=== PATIENT | male | born 1970 | race Caucasian/White ===

== ENCOUNTER 2018-04-29 12:57 | Emergency (ER) | payer MEDICARE, MEDICAID ==
[~2018-04-29] VITALS: Ht 188 cm; Wt 138.5 kg
[~2018-04-29 12:57] MED LIST: ARIP20TA10 PO; BUPR75TA12 PO; DULO60CA64 PO; FLUT16SP18 NS; HYDR-3686 PO; LINA5TAB4 PO; METF500T6 PO; TRAZ-146 PO
[2018-04-29] MEDS ORDERED: INSU100V9 SQ (13:34)
[2018-04-29] MEDS ORDERED: DULA0.75 (13:35)
[2018-04-29 14:11] LABS: BASOPHILS % (AUTO) 0.4 % (0-1); EOSINOPHILS # (AUTO) 0.4 X10'3 (0-0.9); EOSINOPHILS % (AUTO) 4.8 % (0-6); HEMATOCRIT 47.5 % (42.0-52.0); HEMOGLOBIN 16.5 g/dl (14.0-17.9); LYMPHOCYTES # (AUTO) 3.1 X10'3 (1.1-4.8); LYMPHOCYTES % (AUTO) 38.5 % (21-51); MEAN CORPUSCULAR HEMOGLOBIN 29.6 PG (27.0-31.0); MEAN CORPUSCULAR HGB CONC 34.8 % (33.0-36.5); MEAN CORPUSCULAR VOLUME 85.2 FL (78-98); MONOCYTES # (AUTO) 0.4 X10'3 (0-0.9); MONOCYTES % (AUTO) 5.2 % (2-12); NEUTROPHILS # (AUTO) 4.2 X10'3 (1.8-7.7); NEUTROPHILS % (AUTO) 51.1 % (42-75); PLATELET COUNT 185 X10'3 (140-440); RED BLOOD COUNT 5.57 X10'6 (4.70-6.10); RED CELL DISTRIBUTION WIDTH 12.7 % (11.5-14.5); WHITE BLOOD COUNT 8.1 X10'3 (4.5-11.0)
[2018-04-29 14:26] LABS: ALANINE AMINOTRANSFERASE 135 U/L (12-78); ALBUMIN 3.9 G/DL (3.4-5.0); ALBUMIN/GLOBULIN RATIO 0.9 (1.1-1.5); ALKALINE PHOSPHATASE 80 IU/L (46-116); ANION GAP 12 (8-16); ASPARTATE AMINO TRANSFERASE 89 U/L (10-37); BILIRUBIN,TOTAL 0.6 MG/DL (0.1-1.0); BLOOD UREA NITROGEN 10 MG/DL (7-18); BUN/CREATININE RATIO 9.5 (5.4-32.0); CALCIUM 9.1 MG/DL (8.5-10.1); CHLORIDE 101 MMOL/L (99-107); CREATININE 1.05 MG/DL (0.60-1.10); ETHANOL < 0.010 GM/DL (0.0-0.010); GLUCOSE 348 MG/DL (70-104); POTASSIUM 4.3 MMOL/L (3.5-5.1); SODIUM 136 MMOL/L (135-145); TOTAL CARBON DIOXIDE 23.1 MMOL/L (24-32); TOTAL PROTEIN 8.4 G/DL (6.4-8.2); eGFR 76 ML/MIN
[2018-04-29 14:33] LABS: URINE AMPHETAMINE SCREEN NEGATIVE (Neg); URINE BARBITUATE SCREEN NEGATIVE (Neg); URINE BENZODIAZEPINES SCREEN NEGATIVE (Neg); URINE CANNABINOID SCREEN NEGATIVE (Neg); URINE COCAINE SCREEN NEGATIVE (Neg); URINE METHADONE SCREEN NEGATIVE (Neg); URINE OPIATE SCREEN NEGATIVE (Neg); URINE PHENCYCLIDINE SCREEN NEGATIVE (Neg)
[2018-04-29] MEDS ORDERED: ARIP10TA15 PO (17:36)
[2018-04-29] MEDS ORDERED: DULO-31 PO (17:42)
[2018-04-29] MEDS ORDERED: HYDR-3686 PO (17:42)
[2018-04-29] MEDS ORDERED: TRAZ-146 PO (17:42)
[2018-04-29] MEDS ORDERED: METF500T PO (17:42)
[2018-04-29] MEDS ORDERED: LINA5TAB4 PO (17:42)
[2018-04-29] MEDS ORDERED: BUPR75TA8 PO (17:45)
[2018-04-29 17:49] VITALS: BP 146/96
[2018-04-29] MEDS ORDERED: hydrOXYzine 25 MG tablet PO PRN (19:55)
[2018-04-29] MEDS ORDERED: aripiprazole 5mg tablet PO SCH (21:00)
[2018-04-29] MEDS ORDERED: traZODone 50mg tablet PO SCH (21:00)
[2018-04-29] MEDS ORDERED: insulin glargine (Lantus) pen - multi-dose SQ SCH (21:00)
[2018-04-29 21:47] LABS: HEMOGLOBIN A1C 9.5 % (4.5-6.2)
[2018-04-30] MEDS ORDERED: metFORMIN 500mg tablet PO SCH (07:00)
[2018-04-30] MEDS ORDERED: buPROPion 75mg tablet PO SCH (08:00)
[2018-04-30] MEDS ORDERED: duloxetine 30mg CAPSULE.DR PO SCH (08:00)
[2018-04-30] MEDS ORDERED: TRADJENTA 5 MG PO SCH (08:00)
[2018-05-06] MEDS ORDERED: TRULICITY SQ SCH (09:00)
== END 2018-04-29 20:26 | disposition home or self-care (01) ==
LOC: ER 12:58
DX: F32.9 Major depressive disorder, single episode, unspecified (principal); F41.9 Anxiety disorder, unspecified; R45.851 Suicidal ideations; E11.9 Type 2 diabetes mellitus without complications; Z88.0 Allergy status to penicillin; Z79.4 Long term (current) use of insulin; Z79.84 Long term (current) use of oral hypoglycemic drugs; Z79.899 Other long term (current) drug therapy
CPT/HCPCS: 36415; 80053; 80305; 80320; 82948; 83036; 85025; 99284; J1815

== ENCOUNTER 2018-04-29 19:20 | Inpatient (IN) | payer MEDICARE, MEDICAID ==
[~2018-04-29] VITALS: Ht 182.9 cm; Wt 153.0 kg
[~2018-04-29 19:20] MED LIST changes: +ARIP10TA15 PO; +BUPR75TA8 PO; +DULA0.75; +DULO-31 PO; +INSU100V9 SQ; +METF500T PO
[2018-04-29 21:11] VITALS: BP 139/94
[2018-04-29] MEDS ORDERED: hydrOXYzine 25 MG tablet PO PRN (21:50)
[2018-04-29] MEDS: traZODone 50mg tablet PO SCH (22:37)
[2018-04-29] MEDS: aripiprazole 5mg tablet PO SCH (22:37)
[2018-04-29] MEDS ORDERED: acetaminophen 325mg tablet PO PRN ×2 (23:05)
[2018-04-29] MEDS ORDERED: magnesium hydroxide 30ml (MOM) UD suspension PO PRN (23:05)
[2018-04-29] MEDS ORDERED: mag hydrox/Alum hydrox/simeth 30ml oral suspension PO PRN (23:05)
[2018-04-30] MEDS ORDERED: metFORMIN 500mg tablet PO ONE (00:05)
[2018-04-30] MEDS: duloxetine 30mg CAPSULE.DR PO SCH (07:48)
[2018-04-30] MEDS: metFORMIN 500mg tablet PO SCH ×2 (07:49→17:26)
[2018-04-30] MEDS: buPROPion 75mg tablet PO SCH (07:49)
[2018-04-30 08:00] VITALS: BP 128/86
[2018-04-30] MEDS: linagliptin 5mg tablet PO SCH (09:33)
[2018-04-30 11:39] LABS: CHOL/HDL RATIO 8.2 (0.00-4.99); CHOLESTEROL 131 MG/DL (0-200); HDL CHOLESTEROL 16 MG/DL (35-60); LDL CHOLESTEROL 67 MG/DL (50-100); TRIGLYCERIDES 418 MG/DL (20-135)
[2018-04-30 20:00] VITALS: BP 124/84
[2018-04-30] MEDS: insulin glargine (Lantus) pen - multi-dose SQ SCH (21:00)
[2018-04-30] MEDS: traZODone 50mg tablet PO SCH (21:01)
[2018-04-30] MEDS: aripiprazole 5mg tablet PO SCH (21:05)
[2018-05-01] MEDS: metFORMIN 500mg tablet PO SCH ×2 (07:32→17:35)
[2018-05-01] MEDS: buPROPion 75mg tablet PO SCH (07:32)
[2018-05-01] MEDS: duloxetine 30mg CAPSULE.DR PO SCH (07:32)
[2018-05-01] MEDS: linagliptin 5mg tablet PO SCH (07:32)
[2018-05-01 08:00] VITALS: BP 132/88
[2018-05-01 19:36] VITALS: BP 133/89
[2018-05-01] MEDS: aripiprazole 5mg tablet PO SCH (20:40)
[2018-05-01] MEDS: insulin glargine (Lantus) pen - multi-dose SQ SCH (20:40)
[2018-05-01] MEDS: traZODone 50mg tablet PO SCH (20:41)
[2018-05-02] MEDS: duloxetine 30mg CAPSULE.DR PO SCH (07:43)
[2018-05-02] MEDS: linagliptin 5mg tablet PO SCH (07:43)
[2018-05-02] MEDS: metFORMIN 500mg tablet PO SCH ×2 (07:43→17:00)
[2018-05-02 08:00] VITALS: BP 129/88
[2018-05-02] MEDS: buPROPion 100mg tablet PO SCH (09:27)
[2018-05-02 19:29] VITALS: BP 130/89
[2018-05-02] MEDS: traZODone 50mg tablet PO SCH (21:03)
[2018-05-02] MEDS: aripiprazole 5mg tablet PO SCH (21:03)
[2018-05-02] MEDS: insulin glargine (Lantus) pen - multi-dose SQ SCH (21:07)
[2018-05-03 07:48] VITALS: BP 119/78
[2018-05-03] MEDS: metFORMIN 500mg tablet PO SCH ×2 (08:08→17:14)
[2018-05-03] MEDS: linagliptin 5mg tablet PO SCH (08:08)
[2018-05-03] MEDS: duloxetine 30mg CAPSULE.DR PO SCH (08:08)
[2018-05-03] MEDS: buPROPion 100mg tablet PO SCH (08:08)
[2018-05-03 20:04] VITALS: BP 150/91
[2018-05-03] MEDS: aripiprazole 5mg tablet PO SCH (20:53)
[2018-05-03] MEDS: traZODone 50mg tablet PO SCH (20:53)
[2018-05-03] MEDS: insulin glargine (Lantus) pen - multi-dose SQ SCH (20:58)
[2018-05-04 08:16] VITALS: BP 124/77
[2018-05-04] MEDS: metFORMIN 500mg tablet PO SCH ×2 (08:17→17:12)
[2018-05-04] MEDS: buPROPion 100mg tablet PO SCH (08:18)
[2018-05-04] MEDS: linagliptin 5mg tablet PO SCH (08:18)
[2018-05-04] MEDS: duloxetine 30mg CAPSULE.DR PO SCH (08:18)
[2018-05-04 19:00] VITALS: BP 123/82
[2018-05-04] MEDS: aripiprazole 5mg tablet PO SCH (20:31)
[2018-05-04] MEDS: insulin glargine (Lantus) pen - multi-dose SQ SCH (20:34)
[2018-05-04] MEDS: traZODone 50mg tablet PO SCH (21:35)
[2018-05-05 07:45] VITALS: BP 121/81
[2018-05-05] MEDS: metFORMIN 500mg tablet PO SCH ×2 (07:58→17:21)
[2018-05-05] MEDS: buPROPion SR 150mg tablet PO SCH (07:59)
[2018-05-05] MEDS: duloxetine 30mg CAPSULE.DR PO SCH (07:59)
[2018-05-05] MEDS: linagliptin 5mg tablet PO SCH (07:59)
[2018-05-05 19:00] VITALS: BP 132/86
[2018-05-05] MEDS: insulin glargine (Lantus) pen - multi-dose SQ SCH (20:58)
[2018-05-05] MEDS: aripiprazole 5mg tablet PO SCH (20:59)
[2018-05-05] MEDS: traZODone 50mg tablet PO SCH (20:59)
[2018-05-06] MEDS: metFORMIN 500mg tablet PO SCH ×2 (07:23→17:34)
[2018-05-06] MEDS: linagliptin 5mg tablet PO SCH (07:42)
[2018-05-06] MEDS: buPROPion SR 150mg tablet PO SCH (07:42)
[2018-05-06] MEDS: duloxetine 30mg CAPSULE.DR PO SCH (07:42)
[2018-05-06 08:00] VITALS: BP 126/84
[2018-05-06] MEDS ORDERED: DULAGLUTIDE 1.5 MG/0.5 ML SUBCUT SCH (08:00)
[2018-05-06] MEDS ORDERED: DULAGLUTIDE 0.75 MG/0.5 ML SUBCUT SCH (09:00)
[2018-05-06 19:00] VITALS: BP 126/78
[2018-05-06 19:39] VITALS: BP 121/75
[2018-05-06] MEDS ORDERED: aspirin 81mg tab.chew PO ONE (19:55)
[2018-05-06] MEDS ORDERED: nitroGLYCERIN 0.4mg SUBLingual tab SL PRN (20:40)
[2018-05-06 20:41] VITALS: BP 137/84
[2018-05-06 20:43] VITALS: BP 135/87
[2018-05-06] MEDS: traZODone 50mg tablet PO SCH (21:10)
[2018-05-06] MEDS: aripiprazole 5mg tablet PO SCH (21:11)
[2018-05-06] MEDS: insulin glargine (Lantus) pen - multi-dose SQ SCH (21:14)
[2018-05-06 21:24] VITALS: BP 109/70
[2018-05-07 00:55] VITALS: BP 122/85
== END 2018-05-07 01:00 | disposition short-term general hospital (02) | DRG 885 ==
LOC: ADULT MH 19:20
PROVIDERS: ADMIT Psychiatry & Neurology Psychiatry; ATTEND Psychiatry & Neurology Psychiatry
DX: F33.2 Major depressive disorder, recurrent severe without psychotic features (principal); R45.851 Suicidal ideations; Z68.42 Body mass index [BMI] 45.0-49.9, adult; F60.3 Borderline personality disorder; R07.9 Chest pain, unspecified; E11.9 Type 2 diabetes mellitus without complications; F41.9 Anxiety disorder, unspecified; G47.33 Obstructive sleep apnea (adult) (pediatric); E66.01 Morbid (severe) obesity due to excess calories; Z88.0 Allergy status to penicillin; Z79.899 Other long term (current) drug therapy; Z79.4 Long term (current) use of insulin; Z79.84 Long term (current) use of oral hypoglycemic drugs; Z91.5 Personal history of self-harm; Z80.9 Family history of malignant neoplasm, unspecified
CPT/HCPCS: 36415; 80061; 82948; 84443; 84484; 87070; 93005; 99285; J1815

== ENCOUNTER 2018-05-06 22:35 | Inpatient (IN) | payer MEDICARE, MEDICAID ==
[~2018-05-06] VITALS: Ht 185.4 cm; Wt 155.0 kg
[~2018-05-06 22:35] MED LIST changes: -ARIP20TA10 PO; -BUPR75TA12 PO; -DULO60CA64 PO; -FLUT16SP18 NS; -METF500T6 PO
[2018-05-07] VITALS (11 sets, daily range): BP systolic 118–131; BP diastolic 73–87
[2018-05-07] MEDS ORDERED: magnesium hydroxide 30ml (MOM) UD suspension PO PRN (00:45)
[2018-05-07] MEDS ORDERED: aspirin 325mg tablet PO ONE (00:45)
[2018-05-07] MEDS ORDERED: mag hydrox/Alum hydrox/simeth 30ml oral suspension PO PRN (00:45)
[2018-05-07] MEDS ORDERED: ondansetron/PF 4mg/2ml inj IV PRN (00:45)
[2018-05-07] MEDS ORDERED: bisacodyl 10mg suppository rectal RC PRN (00:45)
[2018-05-07] MEDS ORDERED: acetaminophen 325mg tablet PO PRN ×3 (00:45)
[2018-05-07] MEDS ORDERED: nitroGLYCERIN 0.4mg SUBLingual tab SL PRN ×3 (00:45→05:30)
[2018-05-07 03:23] LABS: CHOL/HDL RATIO 6.3 (0.00-4.99); CHOLESTEROL 126 MG/DL (0-200); HDL CHOLESTEROL 20 MG/DL (35-60); TRIGLYCERIDES 196 MG/DL (20-135); TROPONIN I < 0.04 NG/ML (0.0-0.05)
[2018-05-07 03:25] LABS: LDL CHOLESTEROL 77 MG/DL (50-100)
[2018-05-07] MEDS ORDERED: regadenoson 0.4mg/5ml syringe IV ONE ×2 (05:30→09:35)
[2018-05-07] MEDS ORDERED: CAFFEINE CITRATE 60 MG/3 ML injection vial IV PRN (05:30)
[2018-05-07] MEDS ORDERED: metoprolol tartrate 1mg/ml inj IV PRN (05:30)
[2018-05-07] MEDS ORDERED: dextrose 50%-water 50ml dispensing syringe IV PRN ×2 (06:30)
[2018-05-07] MEDS ORDERED: insulin Lispro (HumaLOG) vial - multi-dose SQ SCH (06:30)
[2018-05-07] MEDS ORDERED: MESSAGE TO PHARMACY PO ONE (06:30)
[2018-05-07] MEDS ORDERED: glucagon, human recombinant 1mg kit SUBCUT PRN (06:30)
[2018-05-07] MEDS ORDERED: dextrose ORAL solution 15 GM/59 ML bottle PO PRN ×2 (06:30)
[2018-05-07 08:13] LABS: BASOPHILS % (AUTO) 0.6 % (0-1); EOSINOPHILS # (AUTO) 0.4 X10'3 (0-0.9); HEMATOCRIT 42.6 % (42.0-52.0); HEMOGLOBIN 14.8 g/dl (14.0-17.9); LYMPHOCYTES # (AUTO) 2.8 X10'3 (1.1-4.8); LYMPHOCYTES % (AUTO) 39.6 % (21-51); MEAN CORPUSCULAR HEMOGLOBIN 29.9 PG (27.0-31.0); MEAN CORPUSCULAR HGB CONC 34.8 % (33.0-36.5); MEAN CORPUSCULAR VOLUME 85.9 FL (78-98); MEAN PLATELET VOLUME 9.6 FL (7.4-10.4); MONOCYTES # (AUTO) 0.4 X10'3 (0-0.9); MONOCYTES % (AUTO) 5.5 % (2-12); NEUTROPHILS # (AUTO) 3.4 X10'3 (1.8-7.7); NEUTROPHILS % (AUTO) 48.3 % (42-75); PLATELET COUNT 151 X10'3 (140-440); RED BLOOD COUNT 4.96 X10'6 (4.70-6.10); RED CELL DISTRIBUTION WIDTH 12.4 % (11.5-14.5)
[2018-05-07 08:29] LABS: ALANINE AMINOTRANSFERASE 144 U/L (12-78); ALBUMIN 3.6 G/DL (3.4-5.0); ALKALINE PHOSPHATASE 60 IU/L (46-116); ANION GAP 9 (8-16); ASPARTATE AMINO TRANSFERASE 102 U/L (10-37); BILIRUBIN,TOTAL 0.6 MG/DL (0.1-1.0); BLOOD UREA NITROGEN 14 MG/DL (7-18); BUN/CREATININE RATIO 19.2 (5.4-32.0); CALCIUM 8.6 MG/DL (8.5-10.1); CHLORIDE 104 MMOL/L (99-107); CREATININE 0.73 MG/DL (0.60-1.10); GLUCOSE 174 MG/DL (70-104); POTASSIUM 3.9 MMOL/L (3.5-5.1); SODIUM 138 MMOL/L (135-145); TOTAL CARBON DIOXIDE 24.6 MMOL/L (24-32); TOTAL PROTEIN 7.3 G/DL (6.4-8.2); eGFR > 90 ML/MIN
[2018-05-07 08:32] LABS: TROPONIN I < 0.04 NG/ML (0.0-0.05)
[2018-05-07 08:38] LABS: HEMOGLOBIN A1C 9.7 % (4.5-6.2)
[2018-05-07] MEDS ORDERED: potassium Cl 40MEQ/NS 500ml 500 ML IV PRN ×2 (09:05)
[2018-05-07] MEDS ORDERED: potassium Cl 20 mEq SR tablet PO PRN ×2 (09:05)
[2018-05-07] MEDS ORDERED: magnesium Cl slow-release 64mg tablet PO PRN (09:05)
[2018-05-07] MEDS ORDERED: magnesium/D5W IVPB 100 ML IV PRN (09:05)
[2018-05-07] MEDS ORDERED: magnesium 4gm in 100ml NS 100 ML IV PRN (09:05)
[2018-05-07] MEDS ORDERED: CAFFEINE CITRATE 60 MG/3 ML injection vial IV ONE (09:35)
[2018-05-07] MEDS ORDERED: insulin glargine (Lantus) pen - multi-dose SQ SCH (21:00)
== END 2018-05-07 16:04 | DRG 313 ==
LOC: PCU 3S 22:35
PROVIDERS: ADMIT Emergency Medicine; ATTEND Family Medicine
PROC: 4A02XM4 Measurement of Cardiac Total Activity, External Approach (ICD-10-PCS; principal; 2018-05-07)
PROC: 3E073KZ Introduction of Other Diagnostic Substance into Coronary Artery, Percutaneous Approach (ICD-10-PCS; 2018-05-07)
PROC: 5A09357 Assistance with Respiratory Ventilation, Less than 24 Consecutive Hours, Continuous Positive Airway Pressure (ICD-10-PCS; 2018-05-07)
DX: R07.89 Other chest pain (principal); R45.851 Suicidal ideations; Z68.42 Body mass index [BMI] 45.0-49.9, adult; E11.9 Type 2 diabetes mellitus without complications; E66.9 Obesity, unspecified; G47.30 Sleep apnea, unspecified; Z96.652 Presence of left artificial knee joint; Z88.0 Allergy status to penicillin; Z79.84 Long term (current) use of oral hypoglycemic drugs
CPT/HCPCS: 36415; 78452; 80053; 80061; 82948; 83036; 84484; 85025; 93005; 93017; A9500; J1815

== ENCOUNTER 2018-05-20 18:40 | Inpatient (IN) | payer MEDICARE, MEDICAID ==
[~2018-05-20] VITALS: Ht 188 cm; Wt 159.0 kg
[2018-05-20] MEDS ORDERED: normal saline 1000ML IV soln IVB ONE (19:10)
[2018-05-20] MEDS ORDERED: cefepime 1GM/NS ADD-VANTAGE 100 ML IV ONE (19:10)
[2018-05-20] MEDS ORDERED: vancomycin/NS 1 GM ADD-VANTAGE 250 ML IV ONE (19:10)
[2018-05-20] MEDS ORDERED: iohexol 300mg/ml 100ml inj. ONE (19:14)
[2018-05-20] MEDS ORDERED: acetaminophen 325mg tablet PO ONE (19:25)
[2018-05-20] MEDS ORDERED: LORazepam 2 mg/ml vial IV ONE (19:25)
[2018-05-20 19:33] LABS: BASOPHILS # (AUTO) 0.1 X10'3 (0-0.2); BASOPHILS % (AUTO) 0.6 % (0-1); EOSINOPHILS # (AUTO) 0.3 X10'3 (0-0.9); EOSINOPHILS % (AUTO) 2.9 % (0-6); HEMATOCRIT 40.5 % (42.0-52.0); HEMOGLOBIN 14.2 g/dl (14.0-17.9); LYMPHOCYTES # (AUTO) 2.2 X10'3 (1.1-4.8); LYMPHOCYTES % (AUTO) 18.3 % (21-51); MEAN CORPUSCULAR VOLUME 85.8 FL (78-98); MEAN PLATELET VOLUME 9.4 FL (7.4-10.4); MONOCYTES # (AUTO) 0.8 X10'3 (0-0.9); NEUTROPHILS # (AUTO) 8.5 X10'3 (1.8-7.7); NEUTROPHILS % (AUTO) 71.2 % (42-75); PLATELET COUNT 172 X10'3 (140-440); RED BLOOD COUNT 4.72 X10'6 (4.70-6.10); RED CELL DISTRIBUTION WIDTH 12.4 % (11.5-14.5)
[2018-05-20 19:38] LABS: CLARITY,URINE CLEAR (Clear); COLOR,URINE YELLOW (Yellow); GLUCOSE, URINE >=1000 mg/dl (Neg); KETONES,URINE 40 mg/dl (Neg); LEUKOCYTE ESTERASE ,URINE NEGATIVE (Neg); NITRITES, URINE NEGATIVE (Neg); OCCULT BLOOD,URINE TRACE-INTACT (Neg); PROTEIN,URINE NEGATIVE (Neg); UROBILINOGEN,URINE 0.2 E.U/dL (0.2-1.0)
[2018-05-20 19:39] LABS: UA COLLECTION TYPE VOIDED
[2018-05-20 19:45] LABS: PARTIAL THROMBOPLASTIN TIME 29 SECONDS (22-32); PROTHROMBIN TIME 10.7 SECONDS (9.0-12.0)
[2018-05-20 19:47] LABS: ALANINE AMINOTRANSFERASE 40 U/L (12-78); ALBUMIN 3.3 G/DL (3.4-5.0); ALBUMIN/GLOBULIN RATIO 0.8 (1.1-1.5); ALKALINE PHOSPHATASE 75 IU/L (46-116); ANION GAP 12 (8-16); ASPARTATE AMINO TRANSFERASE 15 U/L (10-37); BILIRUBIN,TOTAL 0.5 MG/DL (0.1-1.0); BLOOD UREA NITROGEN 8 MG/DL (7-18); BUN/CREATININE RATIO 9.5 (5.4-32.0); CALCIUM 9.1 MG/DL (8.5-10.1); CHLORIDE 99 MMOL/L (99-107); CREATININE 0.84 MG/DL (0.60-1.10); GLUCOSE 343 MG/DL (70-104); POTASSIUM 4.2 MMOL/L (3.5-5.1); SODIUM 132 MMOL/L (135-145); TOTAL CARBON DIOXIDE 20.8 MMOL/L (24-32); TOTAL PROTEIN 7.7 G/DL (6.4-8.2); eGFR > 90 ML/MIN
[2018-05-20 19:47] LABS: BACTERIA,URINE NONE SEEN /HPF (Neg); MUCUS STRANDS NONE SEEN /LPF (Neg); RBC,URINE 0-2 /HPF (0-2); SQUAMOUS EPITHELIAL CELL,UR FEW /LPF (FEW); WBC,URINE 0-4 /HPF (0-4)
[2018-05-20] MEDS: MESSAGE TO NURSING PO SCH (20:30)
[2018-05-20] MEDS ORDERED: acetaminophen 325mg tablet PO PRN (22:30)
[2018-05-20] MEDS ORDERED: magnesium hydroxide 30ml (MOM) UD suspension PO PRN (22:30)
[2018-05-20] MEDS ORDERED: bisacodyl 10mg suppository rectal RC PRN (22:30)
[2018-05-20] MEDS ORDERED: morphine 4 MG/ML inj SYRINge IV PRN ×2 (22:30)
[2018-05-20] MEDS ORDERED: ondansetron/PF 4mg/2ml inj IV PRN (22:30)
[2018-05-20] MEDS ORDERED: MESSAGE TO PHARMACY PO ONE (22:40)
[2018-05-20] MEDS ORDERED: glucagon, human recombinant 1mg kit SUBCUT PRN (22:40)
[2018-05-20] MEDS ORDERED: dextrose 50%-water 50ml dispensing syringe IV PRN ×2 (22:40)
[2018-05-20] MEDS ORDERED: dextrose ORAL solution 15 GM/59 ML bottle PO PRN ×2 (22:40)
[2018-05-20] MEDS ORDERED: hydrOXYzine 25 MG tablet PO PRN (23:00)
[2018-05-20] MEDS ORDERED: vancomycin/NS 1 GM ADD-VANTAGE 250 ML X 1 DOSE IV ONE (23:00)
[2018-05-20 23:35] VITALS: BP 136/85
[2018-05-21] VITALS (18 sets, daily range): BP systolic 109–144; BP diastolic 70–89
[2018-05-21] MEDS: sodium chloride 0.45% 1,000 ML IV SCH ×2 (00:37→12:03)
[2018-05-21] MEDS ORDERED: insulin Lispro (HumaLOG) vial - multi-dose SQ ONE ×2 (01:10→01:24)
[2018-05-21] MEDS: cefepime 1GM/NS ADD-VANTAGE 100 ML IV SCH ×3 (03:59→19:35)
[2018-05-21 05:19] LABS: BASOPHILS % (AUTO) 0.2 % (0-1); EOSINOPHILS # (AUTO) 0.3 X10'3 (0-0.9); HEMATOCRIT 36.5 % (42.0-52.0); HEMOGLOBIN 12.8 g/dl (14.0-17.9); LYMPHOCYTES # (AUTO) 2.5 X10'3 (1.1-4.8); LYMPHOCYTES % (AUTO) 21.1 % (21-51); MEAN CORPUSCULAR HGB CONC 35.1 % (33.0-36.5); MEAN CORPUSCULAR VOLUME 85.5 FL (78-98); MEAN PLATELET VOLUME 9.9 FL (7.4-10.4); MONOCYTES # (AUTO) 0.9 X10'3 (0-0.9); NEUTROPHILS # (AUTO) 7.9 X10'3 (1.8-7.7); NEUTROPHILS % (AUTO) 67.7 % (42-75); PLATELET COUNT 157 X10'3 (140-440); RED BLOOD COUNT 4.27 X10'6 (4.70-6.10); RED CELL DISTRIBUTION WIDTH 12.8 % (11.5-14.5); WHITE BLOOD COUNT 11.7 X10'3 (4.5-11.0)
[2018-05-21 05:34] LABS: ALANINE AMINOTRANSFERASE 34 U/L (12-78); ALBUMIN 2.8 G/DL (3.4-5.0); ALBUMIN/GLOBULIN RATIO 0.7 (1.1-1.5); ALKALINE PHOSPHATASE 59 IU/L (46-116); ANION GAP 9 (8-16); ASPARTATE AMINO TRANSFERASE 19 U/L (10-37); BILIRUBIN,TOTAL 0.6 MG/DL (0.1-1.0); BLOOD UREA NITROGEN 8 MG/DL (7-18); BUN/CREATININE RATIO 10.8 (5.4-32.0); CALCIUM 8.3 MG/DL (8.5-10.1); CHLORIDE 101 MMOL/L (99-107); CREATININE 0.74 MG/DL (0.60-1.10); GLUCOSE 253 MG/DL (70-104); MAGNESIUM 1.5 MG/DL (1.5-2.4); SODIUM 133 MMOL/L (135-145); TOTAL CARBON DIOXIDE 22.8 MMOL/L (24-32); TOTAL PROTEIN 6.7 G/DL (6.4-8.2); eGFR > 90 ML/MIN
[2018-05-21] MEDS: MESSAGE TO NURSING PO SCH (06:59)
[2018-05-21] MEDS: insulin Lispro (HumaLOG) vial - multi-dose SQ SCH ×3 (07:19→19:25)
[2018-05-21] MEDS: buPROPion 75mg tablet PO SCH (07:20)
[2018-05-21] MEDS: duloxetine 30mg CAPSULE.DR PO SCH (07:20)
[2018-05-21] MEDS ORDERED: sevoflurane 250ml liquid IH ONE (07:51)
[2018-05-21] MEDS ORDERED: midazolam 2 mg/2 ml injection ONE (07:55)
[2018-05-21] MEDS ORDERED: fentaNYL/PF 50MCG/1 ML 2ML syringe ONE (07:55)
[2018-05-21] MEDS ORDERED: ringers solution, lacted 1,000 ML IV SCH (08:24)
[2018-05-21] MEDS ORDERED: ondansetron/PF 4mg/2ml inj IV PRN (08:25)
[2018-05-21] MEDS ORDERED: morphine 4 MG/ML inj SYRINge IV PRN ×2 (08:25)
[2018-05-21] MEDS ORDERED: proCHLORperazine 10 MG/2 ml inj IV PRN (08:25)
[2018-05-21] MEDS ORDERED: meperidine/PF 25mg/ml syringe IV PRN ×3 (08:25)
[2018-05-21] MEDS ORDERED: propofol inj 20 ML IV ONE ×2 (08:39)
[2018-05-21] MEDS ORDERED: magnesium 4gm in 100ml NS 100 ML IV PRN (10:55)
[2018-05-21] MEDS ORDERED: potassium Cl 40MEQ/NS 500ml 500 ML IV PRN ×2 (10:55)
[2018-05-21] MEDS ORDERED: potassium Cl 20 mEq SR tablet PO PRN ×2 (10:55)
[2018-05-21] MEDS ORDERED: magnesium 1gm/100ml D5W IVPB 100 ML IV PRN (10:55)
[2018-05-21] MEDS ORDERED: magnesium Cl slow-release 64mg tablet PO PRN (10:55)
[2018-05-21] MEDS: traZODone 50mg tablet PO SCH (21:15)
[2018-05-21] MEDS: aripiprazole 5mg tablet PO SCH (21:16)
[2018-05-21] MEDS: insulin glargine (Lantus) pen - multi-dose SQ SCH (21:27)
[2018-05-22] VITALS: BP 118/82
[2018-05-22] MEDS: sodium chloride 0.45% 1,000 ML IV SCH ×3 (03:04→23:03)
[2018-05-22] MEDS: cefepime 1GM/NS ADD-VANTAGE 100 ML IV SCH ×3 (04:17→19:41)
[2018-05-22 05:10] VITALS: BP 110/65
[2018-05-22 06:25] VITALS: BP 122/83
[2018-05-22] MEDS: MESSAGE TO NURSING PO SCH (06:42)
[2018-05-22] MEDS ORDERED: VANCOMYCIN LEVEL IV ONE (07:30)
[2018-05-22] MEDS: duloxetine 30mg CAPSULE.DR PO SCH (07:45)
[2018-05-22] MEDS: buPROPion 75mg tablet PO SCH (07:45)
[2018-05-22] MEDS: insulin Lispro (HumaLOG) vial - multi-dose SQ SCH ×4 (07:56→21:17)
[2018-05-22 08:24] LABS: BASOPHILS % (AUTO) 0.2 % (0-1); EOSINOPHILS # (AUTO) 0.5 X10'3 (0-0.9); EOSINOPHILS % (AUTO) 5.7 % (0-6); HEMATOCRIT 38.5 % (42.0-52.0); HEMOGLOBIN 13.6 g/dl (14.0-17.9); LYMPHOCYTES % (AUTO) 22.3 % (21-51); MEAN CORPUSCULAR HGB CONC 35.4 % (33.0-36.5); MEAN CORPUSCULAR VOLUME 84.9 FL (78-98); MONOCYTES # (AUTO) 0.7 X10'3 (0-0.9); MONOCYTES % (AUTO) 7.5 % (2-12); NEUTROPHILS # (AUTO) 5.7 X10'3 (1.8-7.7); NEUTROPHILS % (AUTO) 64.3 % (42-75); PLATELET COUNT 178 X10'3 (140-440); RED BLOOD COUNT 4.54 X10'6 (4.70-6.10); RED CELL DISTRIBUTION WIDTH 12.8 % (11.5-14.5); WHITE BLOOD COUNT 8.8 X10'3 (4.5-11.0)
[2018-05-22 08:47] LABS: ALANINE AMINOTRANSFERASE 29 U/L (12-78); ALBUMIN 2.9 G/DL (3.4-5.0); ALBUMIN/GLOBULIN RATIO 0.7 (1.1-1.5); ALKALINE PHOSPHATASE 59 IU/L (46-116); ANION GAP 8 (8-16); ASPARTATE AMINO TRANSFERASE 22 U/L (10-37); BLOOD UREA NITROGEN 9 MG/DL (7-18); BUN/CREATININE RATIO 12.5 (5.4-32.0); CALCIUM 8.1 MG/DL (8.5-10.1); CHLORIDE 102 MMOL/L (99-107); CREATININE 0.72 MG/DL (0.60-1.10); GLUCOSE 216 MG/DL (70-104); POTASSIUM 3.8 MMOL/L (3.5-5.1); SODIUM 133 MMOL/L (135-145); TOTAL CARBON DIOXIDE 22.9 MMOL/L (24-32); TOTAL PROTEIN 7.1 G/DL (6.4-8.2); eGFR > 90 ML/MIN
[2018-05-22 08:48] LABS: MAGNESIUM 1.7 MG/DL (1.5-2.4); VANCOMYCIN,TROUGH 8.1 UG/ML (6.0-14.0)
[2018-05-22] MEDS ORDERED: DOXY100T2 PO (09:26)
[2018-05-22 10:48] VITALS: BP 112/72
[2018-05-22] MEDS ORDERED: LORazepam 0.5 MG tablet PO PRN (11:10)
[2018-05-22 19:00] VITALS: BP_SYST 131; BP_SYST 134; BP_DIAS 82; BP_DIAS 87
[2018-05-22] MEDS: lactobacillus rhamnosus 10,000 MMU CELLS/CAPSULE PO SCH (19:41)
[2018-05-22] MEDS ORDERED: lactobacillus rhamnosus 10,000 MMU CELLS/CAPSULE PO SCH (20:00)
[2018-05-22] MEDS: aripiprazole 5mg tablet PO SCH (21:07)
[2018-05-22] MEDS: traZODone 50mg tablet PO SCH (21:07)
[2018-05-22] MEDS: insulin glargine (Lantus) pen - multi-dose SQ SCH (21:19)
[2018-05-22 23:00] VITALS: BP 121/81
[2018-05-23] MEDS: cefepime 1GM/NS ADD-VANTAGE 100 ML IV SCH ×3 (04:11→20:17)
[2018-05-23 05:18] LABS: BASOPHILS % (AUTO) 0.4 % (0-1); EOSINOPHILS # (AUTO) 0.5 X10'3 (0-0.9); EOSINOPHILS % (AUTO) 7.4 % (0-6); HEMATOCRIT 37.6 % (42.0-52.0); HEMOGLOBIN 13.1 g/dl (14.0-17.9); LYMPHOCYTES # (AUTO) 2.1 X10'3 (1.1-4.8); LYMPHOCYTES % (AUTO) 29.6 % (21-51); MEAN CORPUSCULAR HEMOGLOBIN 29.9 PG (27.0-31.0); MEAN CORPUSCULAR HGB CONC 34.9 % (33.0-36.5); MEAN CORPUSCULAR VOLUME 85.6 FL (78-98); MEAN PLATELET VOLUME 9.1 FL (7.4-10.4); MONOCYTES # (AUTO) 0.6 X10'3 (0-0.9); MONOCYTES % (AUTO) 7.9 % (2-12); NEUTROPHILS # (AUTO) 3.9 X10'3 (1.8-7.7); NEUTROPHILS % (AUTO) 54.7 % (42-75); PLATELET COUNT 192 X10'3 (140-440); RED BLOOD COUNT 4.39 X10'6 (4.70-6.10); RED CELL DISTRIBUTION WIDTH 12.4 % (11.5-14.5); WHITE BLOOD COUNT 7.2 X10'3 (4.5-11.0)
[2018-05-23 05:42] LABS: ALANINE AMINOTRANSFERASE 31 U/L (12-78); ALBUMIN 2.7 G/DL (3.4-5.0); ALBUMIN/GLOBULIN RATIO 0.7 (1.1-1.5); ALKALINE PHOSPHATASE 55 IU/L (46-116); ANION GAP 10 (8-16); ASPARTATE AMINO TRANSFERASE 28 U/L (10-37); BILIRUBIN,TOTAL 0.6 MG/DL (0.1-1.0); BLOOD UREA NITROGEN 13 MG/DL (7-18); BUN/CREATININE RATIO 18.8 (5.4-32.0); CALCIUM 8.3 MG/DL (8.5-10.1); CHLORIDE 104 MMOL/L (99-107); CREATININE 0.69 MG/DL (0.60-1.10); GLUCOSE 210 MG/DL (70-104); MAGNESIUM 1.6 MG/DL (1.5-2.4); SODIUM 136 MMOL/L (135-145); TOTAL CARBON DIOXIDE 22.4 MMOL/L (24-32); TOTAL PROTEIN 6.8 G/DL (6.4-8.2); eGFR > 90 ML/MIN
[2018-05-23 07:00] VITALS: BP 124/70
[2018-05-23] MEDS: duloxetine 30mg CAPSULE.DR PO SCH (07:28)
[2018-05-23] MEDS: buPROPion 75mg tablet PO SCH (07:28)
[2018-05-23] MEDS: lactobacillus rhamnosus 10,000 MMU CELLS/CAPSULE PO SCH ×2 (07:28→20:17)
[2018-05-23] MEDS ORDERED: VANCOMYCIN LEVEL IV ONE (07:30)
[2018-05-23] MEDS: sodium chloride 0.45% 1,000 ML IV SCH (07:42)
[2018-05-23] MEDS: insulin Lispro (HumaLOG) vial - multi-dose SQ SCH ×3 (08:11→18:44)
[2018-05-23 11:00] VITALS: BP 138/81
[2018-05-23] MEDS: aripiprazole 5mg tablet PO SCH (20:17)
[2018-05-23] MEDS ORDERED: insulin glargine (Lantus) pen - multi-dose SQ SCH (21:00)
[2018-05-23] MEDS: traZODone 50mg tablet PO SCH (21:29)
[2018-05-23 23:00] VITALS: BP 125/73
[2018-05-24] MEDS: cefepime 1GM/NS ADD-VANTAGE 100 ML IV SCH ×2 (03:36→12:02)
[2018-05-24 05:08] LABS: BASOPHILS % (AUTO) 0.6 % (0-1); EOSINOPHILS # (AUTO) 0.5 X10'3 (0-0.9); EOSINOPHILS % (AUTO) 7.9 % (0-6); HEMATOCRIT 37.4 % (42.0-52.0); LYMPHOCYTES # (AUTO) 2.3 X10'3 (1.1-4.8); MEAN CORPUSCULAR HEMOGLOBIN 29.9 PG (27.0-31.0); MEAN CORPUSCULAR HGB CONC 34.7 % (33.0-36.5); MEAN CORPUSCULAR VOLUME 86.3 FL (78-98); MEAN PLATELET VOLUME 9.1 FL (7.4-10.4); MONOCYTES # (AUTO) 0.6 X10'3 (0-0.9); MONOCYTES % (AUTO) 8.5 % (2-12); NEUTROPHILS # (AUTO) 3.3 X10'3 (1.8-7.7); PLATELET COUNT 215 X10'3 (140-440); RED BLOOD COUNT 4.33 X10'6 (4.70-6.10); RED CELL DISTRIBUTION WIDTH 13.1 % (11.5-14.5); WHITE BLOOD COUNT 6.8 X10'3 (4.5-11.0)
[2018-05-24 05:34] LABS: ALANINE AMINOTRANSFERASE 45 U/L (12-78); ALBUMIN 2.6 G/DL (3.4-5.0); ALBUMIN/GLOBULIN RATIO 0.7 (1.1-1.5); ALKALINE PHOSPHATASE 54 IU/L (46-116); ANION GAP 10 (8-16); ASPARTATE AMINO TRANSFERASE 48 U/L (10-37); BILIRUBIN,TOTAL 0.5 MG/DL (0.1-1.0); BLOOD UREA NITROGEN 14 MG/DL (7-18); CALCIUM 8.5 MG/DL (8.5-10.1); CHLORIDE 104 MMOL/L (99-107); CREATININE 0.61 MG/DL (0.60-1.10); GLUCOSE 196 MG/DL (70-104); MAGNESIUM 1.5 MG/DL (1.5-2.4); POTASSIUM 3.7 MMOL/L (3.5-5.1); SODIUM 138 MMOL/L (135-145); TOTAL CARBON DIOXIDE 23.8 MMOL/L (24-32); TOTAL PROTEIN 6.6 G/DL (6.4-8.2); eGFR > 90 ML/MIN
[2018-05-24 07:00] VITALS: BP 120/87
[2018-05-24] MEDS: duloxetine 30mg CAPSULE.DR PO SCH (07:14)
[2018-05-24] MEDS: buPROPion 75mg tablet PO SCH (07:14)
[2018-05-24] MEDS: lactobacillus rhamnosus 10,000 MMU CELLS/CAPSULE PO SCH (07:14)
[2018-05-24] MEDS: insulin Lispro (HumaLOG) vial - multi-dose SQ SCH ×2 (09:15→13:19)
[2018-05-24 11:25] VITALS: BP 125/74
[2018-05-24] MEDS ORDERED: CIPR-230 PO (12:27)
[2018-05-24] MEDS ORDERED: METR500T4 PO (12:27)
== END 2018-05-24 14:30 | disposition home or self-care (01) | DRG 872 ==
LOC: ER 18:42 → ED HOLD 22:30 → SUR 3N 23:29 → PACU 05-21 07:37 → SUR 3N 05-21 09:30
PROVIDERS: ADMIT Emergency Medicine; ATTEND Family Medicine
PROC: BW211ZZ Computerized Tomography (CT Scan) of Abdomen and Pelvis using Low Osmolar Contrast (ICD-10-PCS; 2018-05-20)
PROC: 0W9M3ZZ Drainage of Male Perineum, Percutaneous Approach (ICD-10-PCS; 2018-05-20)
PROC: 0J9B3ZZ Drainage of Perineum Subcutaneous Tissue and Fascia, Percutaneous Approach (ICD-10-PCS; principal; 2018-05-21 07:51)
DX: A41.9 Sepsis, unspecified organism (principal); L02.215 Cutaneous abscess of perineum; L03.314 Cellulitis of groin; Z68.42 Body mass index [BMI] 45.0-49.9, adult; G47.30 Sleep apnea, unspecified; N45.1 Epididymitis; E11.65 Type 2 diabetes mellitus with hyperglycemia; B95.7 Other staphylococcus as the cause of diseases classified elsewhere; E66.01 Morbid (severe) obesity due to excess calories; F20.9 Schizophrenia, unspecified; F41.8 Other specified anxiety disorders; Z88.0 Allergy status to penicillin; Z79.899 Other long term (current) drug therapy; Z79.4 Long term (current) use of insulin; Z80.9 Family history of malignant neoplasm, unspecified
CPT/HCPCS: 36415; 72192; 74177; 76870; 80053; 80202; 81001; 82948; 83036; 83605; 83735; 84145; 85025; 85610; 85730; 87040; 87070; 87075; 87076; 87077; 87088; 87185; 87186; 93005; 96361; 96365; 96375; 99285; A6253; A6266; A6449; J0692; J1815; J2060; J2250; J2270; J2704; J3010; J3370; J7030; J7120; Q9967

== ENCOUNTER 2018-08-03 14:06 | Emergency (ER) | payer MEDICARE, MEDICAID ==
[~2018-08-03] VITALS: Ht 182.9 cm; Wt 113.0 kg
[~2018-08-03 14:06] MED LIST changes: -DULA0.75; +DULA0.75 SQ; -TRAZ-146 PO; +TRAZ-219 PO
[2018-08-03] MEDS ORDERED: PIOG45TA19 PO (14:48)
[2018-08-03] MEDS ORDERED: TACR30OI4 TOP (14:48)
[2018-08-03] MEDS ORDERED: DULAGLUTIDE 0.75 MG SQ SCH (15:05)
[2018-08-03] MEDS ORDERED: hydrOXYzine 25 MG tablet PO PRN ×2 (15:05→15:20)
[2018-08-03 15:09] LABS: BASOPHILS % (AUTO) 0.5 % (0-1); EOSINOPHILS # (AUTO) 0.3 X10'3 (0-0.9); EOSINOPHILS % (AUTO) 4.6 % (0-6); HEMATOCRIT 45.3 % (42.0-52.0); HEMOGLOBIN 15.6 g/dl (14.0-17.9); LYMPHOCYTES # (AUTO) 2.5 X10'3 (1.1-4.8); LYMPHOCYTES % (AUTO) 34.6 % (21-51); MEAN CORPUSCULAR HEMOGLOBIN 29.1 PG (27.0-31.0); MEAN CORPUSCULAR HGB CONC 34.5 % (33.0-36.5); MEAN CORPUSCULAR VOLUME 84.3 FL (78-98); MEAN PLATELET VOLUME 9.4 FL (7.4-10.4); MONOCYTES # (AUTO) 0.4 X10'3 (0-0.9); MONOCYTES % (AUTO) 4.9 % (2-12); NEUTROPHILS # (AUTO) 4.1 X10'3 (1.8-7.7); NEUTROPHILS % (AUTO) 55.4 % (42-75); PLATELET COUNT 192 X10'3 (140-440); RED BLOOD COUNT 5.38 X10'6 (4.70-6.10); RED CELL DISTRIBUTION WIDTH 12.9 % (11.5-14.5); WHITE BLOOD COUNT 7.3 X10'3 (4.5-11.0)
[2018-08-03 15:26] LABS: ALANINE AMINOTRANSFERASE 98 U/L (12-78); ALKALINE PHOSPHATASE 71 IU/L (46-116); ANION GAP 15 (8-16); ASPARTATE AMINO TRANSFERASE 91 U/L (10-37); BILIRUBIN,TOTAL 0.7 MG/DL (0.1-1.0); BLOOD UREA NITROGEN 14 MG/DL (7-18); BUN/CREATININE RATIO 18.2 (5.4-32.0); CALCIUM 9.7 MG/DL (8.5-10.1); CHLORIDE 100 MMOL/L (99-107); CREATININE 0.77 MG/DL (0.60-1.10); ETHANOL < 0.010 GM/DL (0.0-0.010); GLUCOSE 310 MG/DL (70-104); SODIUM 136 MMOL/L (135-145); TOTAL CARBON DIOXIDE 21.4 MMOL/L (24-32); TOTAL PROTEIN 8.2 G/DL (6.4-8.2); eGFR > 90 ML/MIN
[2018-08-03 15:39] LABS: URINE AMPHETAMINE SCREEN NEGATIVE (Neg); URINE BARBITUATE SCREEN NEGATIVE (Neg); URINE BENZODIAZEPINES SCREEN NEGATIVE (Neg); URINE CANNABINOID SCREEN NEGATIVE (Neg); URINE COCAINE SCREEN NEGATIVE (Neg); URINE METHADONE SCREEN NEGATIVE (Neg); URINE OPIATE SCREEN NEGATIVE (Neg); URINE PHENCYCLIDINE SCREEN NEGATIVE (Neg)
[2018-08-03] MEDS ORDERED: ARIP400S2 IM (16:51)
[2018-08-03] MEDS ORDERED: dextrose 50%-water 50ml dispensing syringe IV PRN ×2 (16:55)
[2018-08-03] MEDS ORDERED: MESSAGE TO PHARMACY PO ONE (16:55)
[2018-08-03] MEDS ORDERED: dextrose ORAL solution 15 GM/59 ML bottle PO PRN ×2 (16:55)
[2018-08-03] MEDS ORDERED: glucagon, human recombinant 1mg kit SUBCUT PRN (16:55)
[2018-08-03] MEDS: metFORMIN 500mg tablet PO SCH (17:55)
[2018-08-03] MEDS: insulin Lispro (HumaLOG) vial - multi-dose SQ SCH (19:11)
[2018-08-03] MEDS ORDERED: TACROLIMUS TOP SCH (20:00)
[2018-08-03] MEDS ORDERED: non-formulary drug (Trazodone HCl 2 TAB) PO SCH (21:00)
[2018-08-03] MEDS ORDERED: INSULIN GLARGINE HUM REC ANLOG 60 UNIT SQ SCH (21:00)
[2018-08-03] MEDS ORDERED: insulin glargine (Lantus) pen - multi-dose SQ SCH ×2 (21:00)
[2018-08-03] MEDS: insulin glargine (Lantus) pen - multi-dose SQ SCH (21:44)
[2018-08-03] MEDS: traZODone 50mg tablet PO SCH (21:46)
[2018-08-04] MEDS: TACROLIMUS TOP SCH ×2 (08:00→20:00)
[2018-08-04] MEDS ORDERED: ARIPIPRAZOLE 20 MG PO SCH (08:00)
[2018-08-04] MEDS: pioglitazone 45mg tablet PO SCH (08:08)
[2018-08-04] MEDS: aripiprazole 5mg tablet PO SCH (08:08)
[2018-08-04] MEDS: metFORMIN 500mg tablet PO SCH ×2 (08:13→16:53)
[2018-08-04] MEDS: insulin Lispro (HumaLOG) vial - multi-dose SQ SCH ×3 (08:49→18:53)
[2018-08-04] MEDS: traZODone 50mg tablet PO SCH (21:09)
[2018-08-04] MEDS: insulin glargine (Lantus) pen - multi-dose SQ SCH (21:15)
[2018-08-05] MEDS: TACROLIMUS TOP SCH ×2 (08:00→20:30)
[2018-08-05] MEDS ORDERED: TRULICITY 0.75 MG/0.5 ML SQ SCH (08:00)
[2018-08-05] MEDS: pioglitazone 45mg tablet PO SCH (08:22)
[2018-08-05] MEDS: metFORMIN 500mg tablet PO SCH ×2 (08:23→17:42)
[2018-08-05] MEDS: aripiprazole 5mg tablet PO SCH (08:23)
[2018-08-05] MEDS: insulin Lispro (HumaLOG) vial - multi-dose SQ SCH ×3 (08:40→18:51)
[2018-08-05] MEDS: insulin glargine (Lantus) pen - multi-dose SQ SCH (20:26)
[2018-08-05] MEDS: traZODone 50mg tablet PO SCH (20:28)
[2018-08-06 05:30] VITALS: BP 126/81
[2018-08-06] MEDS: aripiprazole 5mg tablet PO SCH (07:38)
[2018-08-06] MEDS: metFORMIN 500mg tablet PO SCH (07:38)
[2018-08-06] MEDS: pioglitazone 45mg tablet PO SCH (07:54)
[2018-08-06] MEDS: TACROLIMUS TOP SCH (07:55)
[2018-08-06] MEDS: insulin Lispro (HumaLOG) vial - multi-dose SQ SCH (08:23)
== END 2018-08-06 11:09 ==
LOC: ER 14:06
DX: F32.9 Major depressive disorder, single episode, unspecified (principal); F41.9 Anxiety disorder, unspecified; F20.9 Schizophrenia, unspecified; E11.65 Type 2 diabetes mellitus with hyperglycemia; Z88.0 Allergy status to penicillin; Z79.4 Long term (current) use of insulin
CPT/HCPCS: 36415; 80053; 80305; 80320; 82948; 83036; 85025; 96372; 99285; J1815

== ENCOUNTER 2019-03-10 15:45 | Emergency (ER) | payer MEDICARE, MEDICAID ==
[~2019-03-10] VITALS: Ht 185.4 cm; Wt 163.6 kg
[~2019-03-10 15:45] MED LIST changes: +ARIP20TA4 PO; +ARIP2TAB11 PO; +ARIP400S2 IM; +BUPR-84 PO; -BUPR75TA8 PO; -DULO-31 PO; +DULO60CA64 PO; -LINA5TAB4 PO; +METF-436 PO; +PIOG45TA19 PO; +PIOG45TA65 PO; +TACR100O2 TOP; +TACR30OI4 TOP
[2019-03-10 17:33] LABS: BASOPHILS # (AUTO) 0.1 X10'3 (0-0.2); EOSINOPHILS # (AUTO) 0.4 X10'3 (0-0.9); HEMATOCRIT 45.2 % (42.0-52.0)
[2019-03-10 17:35] LABS: BASOPHILS % (AUTO) 0.8 % (0-1); EOSINOPHILS % (AUTO) 3.6 % (0-6); HEMOGLOBIN 15.8 g/dl (14.0-17.9); LYMPHOCYTES # (AUTO) 3.9 X10'3 (1.1-4.8); LYMPHOCYTES % (AUTO) 36.8 % (21-51); MEAN CORPUSCULAR HEMOGLOBIN 29.7 PG (27.0-31.0); MEAN CORPUSCULAR VOLUME 84.9 FL (78-98); MEAN PLATELET VOLUME 9.9 FL (7.4-10.4); MONOCYTES # (AUTO) 0.6 X10'3 (0-0.9); MONOCYTES % (AUTO) 5.9 % (2-12); NEUTROPHILS # (AUTO) 5.7 X10'3 (1.8-7.7); NEUTROPHILS % (AUTO) 52.9 % (42-75); PLATELET COUNT 227 X10'3 (140-440); RED BLOOD COUNT 5.33 X10'6 (4.70-6.10); RED CELL DISTRIBUTION WIDTH 13.2 % (11.5-14.5); WHITE BLOOD COUNT 10.7 X10'3 (4.5-11.0)
--- NOTE | 2019-03-10 17:38 | NUR ---
PT BROUGHT OVER TO ROOM 23 FROM ROOM 11. PT ALREDY IN A GREEN GOWN AND ROOM IS CLEANED AND READY.
[2019-03-10 17:49] LABS: ALANINE AMINOTRANSFERASE 70 U/L (12-78); ALBUMIN 3.9 G/DL (3.4-5.0); ALBUMIN/GLOBULIN RATIO 0.9 (1.1-1.5); ALKALINE PHOSPHATASE 71 IU/L (46-116); ANION GAP 12 (8-16); ASPARTATE AMINO TRANSFERASE 26 U/L (10-37); BILIRUBIN,TOTAL 0.5 MG/DL (0.1-1.0); BLOOD UREA NITROGEN 13 MG/DL (7-18); BUN/CREATININE RATIO 15.9 (5.4-32.0); CALCIUM 9.8 MG/DL (8.5-10.1); CHLORIDE 100 MMOL/L (99-107); CREATININE 0.82 MG/DL (0.60-1.10); ETHANOL < 0.010 GM/DL (0.0-0.010); GLUCOSE 313 MG/DL (70-104); POTASSIUM 4.3 MMOL/L (3.5-5.1); SODIUM 135 MMOL/L (135-145); TOTAL CARBON DIOXIDE 22.6 MMOL/L (24-32); TOTAL PROTEIN 8.1 G/DL (6.4-8.2); eGFR > 90 ML/MIN
[2019-03-10 17:51] LABS: URINE AMPHETAMINE SCREEN NEGATIVE (Neg); URINE BARBITUATE SCREEN NEGATIVE (Neg); URINE BENZODIAZEPINES SCREEN NEGATIVE (Neg); URINE CANNABINOID SCREEN NEGATIVE (Neg); URINE COCAINE SCREEN NEGATIVE (Neg); URINE METHADONE SCREEN NEGATIVE (Neg); URINE OPIATE SCREEN NEGATIVE (Neg); URINE PHENCYCLIDINE SCREEN NEGATIVE (Neg)
[2019-03-10] MEDS ORDERED: LANTUS SQ (18:04)
--- NOTE | 2019-03-10 18:30 | NUR ---
One to one with the patient to assess severity of depressive symptoms and self harm risk. The patient is quiet, soft spoken and cooperative. He is alert and oriented. His affect his blunted, his speech in monotone and he is restless and anxious appearing. The patient stated that he has been compliant with his medications but he missed his last clininc appointment at the [facility] on the 13 of this month so he is currently overdue on his Abilify injection. He stated that he has had uncontrollable suicidal thoughts to overdose on his insulin for the past several weeks. He denies psychotic symptoms. He reports his anxiety is very high and states he had a panic disorder several days ago. He reports very low energy and that he has been sleeping a lot. He currently lives with his mother and brother and states that are supportive of him. His blood sugars have been running high at home and and he stated last week his HGA1C was in the 11's. He denies drugs or ETOH.
--- NOTE | 2019-03-10 19:00 | NUR ---
Reviewed blood glucose levels with PA and no new orders at this time.
--- NOTE | 2019-03-10 19:29 | NUR ---
Telepsych consult referral made.
--- NOTE | 2019-03-10 21:04 | NUR ---
Report given to telepsychiatrist
--- NOTE | 2019-03-10 21:18 | NUR ---
[facility] here to interview the patient
[2019-03-10] MEDS: hydrOXYzine 25 MG tablet PO PRN (21:40)
[2019-03-10] MEDS: insulin glargine (Lantus) pen - multi-dose SQ SCH (21:40)
[2019-03-10] MEDS: metFORMIN 500mg tablet PO SCH (21:41)
[2019-03-10] MEDS: traZODone 50mg tablet PO SCH (21:41)
--- NOTE | 2019-03-10 22:04 | NUR ---
The patient is resting on his bed with the head of his bed elevated and bipap machine from home on.
--- NOTE | 2019-03-11 00:47 | NUR ---
THe patient appears to be sleeping
[2019-03-11] MEDS ORDERED: hydrOXYzine 25 MG tablet PO PRN (00:50)
--- NOTE | 2019-03-11 04:27 | NUR ---
The patient appears to be asleep at this time
--- NOTE | 2019-03-11 05:21 | NUR ---
THe patient appears to be asleep at this time
--- NOTE | 2019-03-11 07:30 | NUR ---
Patient sitting up in bed, blood sugar checked per order. Patient states that he has left knee pain that is a chronic issue pain score 3-10 on a scale of 1-10
--- NOTE | 2019-03-11 08:15 | NUR ---
Patient sitting up in bed eating breakfast.
[2019-03-11] MEDS: metFORMIN 500mg tablet PO SCH ×2 (08:27→20:15)
[2019-03-11] MEDS: pioglitazone 45mg tablet PO SCH (08:27)
--- NOTE | 2019-03-11 10:00 | NUR ---
Patient standing in room talking on phone. Patient ambulating independently
--- NOTE | 2019-03-11 12:00 | NUR ---
Patient lying in bed with eyes open.
--- NOTE | 2019-03-11 13:00 | NUR ---
Patient sitting up in bed eating lunch.
--- NOTE | 2019-03-11 15:00 | NUR ---
Patient sitting up in bed with a snack, denies pain at this time.
[2019-03-11] MEDS ORDERED: aripiprazole 400mg suspension ER syringe IM SCH ×2 (19:35)
--- NOTE | 2019-03-11 19:37 | NUR ---
pt cooperative with physical assessment. no new complaints. mood seems sad. Asked to use phone, phone was provided
[2019-03-11] MEDS: insulin glargine (Lantus) pen - multi-dose SQ SCH (20:14)
[2019-03-11] MEDS: traZODone 50mg tablet PO SCH (20:15)
--- NOTE | 2019-03-11 21:52 | NUR ---
pt requested home bipap machine for sleep. machine retrieved from utility room and set up. pt is in line of sight of staff while he has machine. will lock back up in the morning
--- NOTE | 2019-03-11 23:19 | NUR ---
pt resting calmly on back with eyes closed. respirations WNL
--- NOTE | 2019-03-12 01:12 | NUR ---
Pt asleep in his back with CPAP on. No signs of distress. Will continue to monitor.
--- NOTE | 2019-03-12 05:12 | NUR ---
Patient up to the bathroom w/o issue
--- NOTE | 2019-03-12 06:53 | NUR ---
Patient lying in bed sleeping with CPAP. No S/S of distress.
[2019-03-12] MEDS: metFORMIN 500mg tablet PO SCH ×2 (08:09→20:29)
[2019-03-12] MEDS: pioglitazone 45mg tablet PO SCH (08:10)
--- NOTE | 2019-03-12 09:27 | NUR ---
Pts. BGM 160. Ate 100% of carb controlled diet. Slept well last night. Reports that he feels better than yesterday. Mood depressed, affect flat.
--- NOTE | 2019-03-12 11:42 | NUR ---
Patient sitting on the side of his bed, willing to talk. States that he is still suicidal. Reports that he was in therapy and they hit upon something that the patient cannot process, and this led him to have suicidal thoughts. Patient denies A/V/H. States he has normal stressors at home. Patient depressed and feels hopeless.
--- NOTE | 2019-03-12 14:42 | NUR ---
Patient ate 100% of lunch. Pt. pacing in room. Pt. has been calm and cooperative this shift.
--- NOTE | 2019-03-12 16:56 | NUR ---
Pt. states that he feels better after talking with his mom. Carb controlled snack provided.
--- NOTE | 2019-03-12 19:13 | NUR ---
PT RESTING QUIETLY IN ROOM, USING PHONE.
[2019-03-12] MEDS: hydrOXYzine 25 MG tablet PO PRN (19:28)
--- NOTE | 2019-03-12 19:28 | NUR ---
MEDICATED FOR C/O ANXIETY WITH ATARAX.
[2019-03-12] MEDS: traZODone 50mg tablet PO SCH (20:29)
[2019-03-12] MEDS: LORazepam 1 MG tablet PO PRN (20:29)
[2019-03-12] MEDS: insulin glargine (Lantus) pen - multi-dose SQ SCH (20:31)
--- NOTE | 2019-03-12 20:46 | NUR ---
PT STILL VERY ANXIOUS, PACING. ORDER OBTAINED FOR ATIVAN PO PRN. PT MEDICATED.
--- NOTE | 2019-03-12 22:14 | NUR ---
APPEARS MORE RELAXED, LYING IN BED.
--- NOTE | 2019-03-13 06:25 | NUR ---
Patient sleeping supine with C-Pap. No distress observed. Continue to monitor.
[2019-03-13] MEDS: metFORMIN 500mg tablet PO SCH (08:18)
[2019-03-13] MEDS: pioglitazone 45mg tablet PO SCH (08:18)
[2019-03-13] MEDS: LORazepam 1 MG tablet PO PRN (15:43)
[2019-03-13 17:48] VITALS: BP 142/89
== END 2019-03-13 18:28 ==
LOC: ER 15:46
DX: F32.9 Major depressive disorder, single episode, unspecified (principal); F41.9 Anxiety disorder, unspecified; F20.9 Schizophrenia, unspecified; Z56.0 Unemployment, unspecified; Z88.0 Allergy status to penicillin; Z79.4 Long term (current) use of insulin
CPT/HCPCS: 36415; 80053; 80305; 80320; 82948; 85025; 96372; 99284; Q0177; J1815

== ENCOUNTER 2019-03-13 17:09 | Inpatient (IN) | payer MEDICARE, MEDICAID | END 2019-03-19 13:10 | disposition home or self-care (01) | LOC: ADULT MH 17:09 | DX: F33.9 Major depressive disorder, recurrent, unspecified (principal); Z68.42 Body mass index [BMI] 45.0-49.9, adult; G47.33 Obstructive sleep apnea (adult) (pediatric); E66.9 Obesity, unspecified ==

== ENCOUNTER 2019-07-29 11:44 | Emergency (ER) | payer MEDICARE, MEDICAID ==
[~2019-07-29] VITALS: Ht 185.4 cm; Wt 165.9 kg
[~2019-07-29 11:44] MED LIST changes: -ARIP10TA15 PO; -ARIP20TA4 PO; -ARIP2TAB11 PO; -BUPR-84 PO; -DULA0.75 SQ; -DULO60CA64 PO; +DULO60CA65 PO; -INSU100V9 SQ; +LANTUS SQ; -METF500T PO; -PIOG45TA65 PO; -TACR100O2 TOP; -TACR30OI4 TOP
[2019-07-29] MEDS ORDERED: LORazepam 1 MG tablet PO ONE (12:10)
[2019-07-29] MEDS ORDERED: GABA-532 PO (12:22)
[2019-07-29] MEDS ORDERED: EMPA25TA PO (12:22)
[2019-07-29] MEDS ORDERED: DULA1.5P SQ (12:22)
[2019-07-29] MEDS ORDERED: TRAZ150T78 PO (12:22)
[2019-07-29 12:42] LABS: BASOPHILS # (AUTO) 0.1 X10'3 (0-0.2); BASOPHILS % (AUTO) 1.1 % (0-1); EOSINOPHILS # (AUTO) 0.4 X10'3 (0-0.9); EOSINOPHILS % (AUTO) 4.6 % (0-6); LYMPHOCYTES # (AUTO) 2.9 X10'3 (1.1-4.8); LYMPHOCYTES % (AUTO) 37.2 % (21-51); MEAN CORPUSCULAR HEMOGLOBIN 29.4 PG (27.0-31.0); MEAN CORPUSCULAR VOLUME 86.3 FL (78-98); MEAN PLATELET VOLUME 9.9 FL (7.4-10.4); MONOCYTES # (AUTO) 0.4 X10'3 (0-0.9); MONOCYTES % (AUTO) 5.1 % (2-12); NEUTROPHILS # (AUTO) 4.1 X10'3 (1.8-7.7); PLATELET COUNT 180 X10'3 (140-440); WHITE BLOOD COUNT 7.8 X10'3 (4.5-11.0)
[2019-07-29] MEDS ORDERED: non-formulary drug (Dulaglutide (Trulicity) 0.5 ML) SQ SCH (12:50)
[2019-07-29] MEDS ORDERED: non-formulary drug (Aripiprazole (Abilify Maintena) 400 MG) IM SCH (12:50)
[2019-07-29 12:55] LABS: ALANINE AMINOTRANSFERASE 71 U/L (12-78); ALBUMIN 4.1 G/DL (3.4-5.0); ALKALINE PHOSPHATASE 69 IU/L (46-116); ANION GAP 14 (8-16); ASPARTATE AMINO TRANSFERASE 35 U/L (10-37); BILIRUBIN,TOTAL 0.6 MG/DL (0.1-1.0); BLOOD UREA NITROGEN 14 MG/DL (7-18); BUN/CREATININE RATIO 15.9 (5.4-32.0); CALCIUM 8.9 MG/DL (8.5-10.1); CHLORIDE 102 MMOL/L (99-107); CREATININE 0.88 MG/DL (0.60-1.10); GLUCOSE 335 MG/DL (70-104); SODIUM 136 MMOL/L (135-145); TOTAL CARBON DIOXIDE 20.1 MMOL/L (24-32); TOTAL PROTEIN 8.4 G/DL (6.4-8.2); eGFR > 90 ML/MIN
[2019-07-29 12:56] LABS: POTASSIUM 4.3 MMOL/L (3.5-5.1)
[2019-07-29 12:57] LABS: ETHANOL < 0.010 GM/DL (0.0-0.010)
[2019-07-29] MEDS ORDERED: gabapentin 300mg capsule PO SCH (13:00)
[2019-07-29] MEDS ORDERED: aripiprazole 400mg suspension ER syringe IM SCH (13:05)
[2019-07-29] MEDS ORDERED: normal saline 1000ML IV soln IVB ONE (13:20)
[2019-07-29] MEDS ORDERED: insulin regular, human 10 units/0.1 ml syringe IV ONE (13:20)
[2019-07-29] MEDS: gabapentin 300mg capsule PO SCH ×2 (14:06→20:32)
[2019-07-29 17:14] LABS: CLARITY,URINE CLEAR (Clear); COLOR,URINE YELLOW (Yellow); GLUCOSE, URINE >=1000 mg/dl (Neg); KETONES,URINE TRACE mg/dl (Neg); LEUKOCYTE ESTERASE ,URINE NEGATIVE (Neg); NITRITES, URINE NEGATIVE (Neg); OCCULT BLOOD,URINE NEGATIVE (Neg); PROTEIN,URINE NEGATIVE (Neg); UROBILINOGEN,URINE 0.2 E.U/dL (0.2-1.0)
[2019-07-29 17:21] LABS: UA COLLECTION TYPE CLN CATCH MIDSTREAM
[2019-07-29 17:24] LABS: BACTERIA,URINE NONE SEEN /HPF (Neg); MUCUS STRANDS NONE SEEN /LPF (Neg); RBC,URINE NONE SEEN /HPF (0-2); SQUAMOUS EPITHELIAL CELL,UR FEW /LPF (FEW); WBC,URINE 0-4 /HPF (0-4)
[2019-07-29 17:32] LABS: URINE AMPHETAMINE SCREEN NEGATIVE (Neg); URINE BARBITUATE SCREEN NEGATIVE (Neg); URINE BENZODIAZEPINES SCREEN NEGATIVE (Neg); URINE CANNABINOID SCREEN NEGATIVE (Neg); URINE COCAINE SCREEN NEGATIVE (Neg); URINE METHADONE SCREEN NEGATIVE (Neg); URINE OPIATE SCREEN NEGATIVE (Neg); URINE PHENCYCLIDINE SCREEN NEGATIVE (Neg)
[2019-07-29] MEDS ORDERED: metFORMIN 500mg tablet PO SCH ×2 (20:00)
[2019-07-29] MEDS ORDERED: traZODone 150mg tablet PO SCH (21:00)
[2019-07-29 21:43] VITALS: BP 142/85
[2019-07-30] MEDS ORDERED: JARDIANCE 25 MG PO SCH (08:00)
[2019-07-30] MEDS ORDERED: traZODone 150mg tablet PO SCH (21:00)
[2019-08-04] MEDS ORDERED: TRULICITY 1.5 MG/0.5 ML SQ SCH (09:00)
== END 2019-07-29 21:45 | disposition home or self-care (01) ==
LOC: ER 11:45
DX: F32.9 Major depressive disorder, single episode, unspecified (principal); F25.9 Schizoaffective disorder, unspecified; R45.851 Suicidal ideations; E11.9 Type 2 diabetes mellitus without complications; F41.9 Anxiety disorder, unspecified; Z56.0 Unemployment, unspecified; Z88.0 Allergy status to penicillin; Z79.899 Other long term (current) drug therapy; Z79.4 Long term (current) use of insulin
CPT/HCPCS: 36415; 80053; 80305; 80320; 81001; 82948; 85025; 96372; 96374; 99284; J1815; J7030

== ENCOUNTER 2019-09-17 09:17 | Emergency (ER) | payer MEDICARE, MEDICAID ==
[~2019-09-17] VITALS: Ht 188 cm; Wt 152.9 kg
[~2019-09-17 09:17] MED LIST changes: +DULA1.5P SQ; -DULO60CA65 PO; +EMPA25TA PO; +GABA-532 PO; -HYDR-3686 PO; -LANTUS SQ; -PIOG45TA19 PO; -TRAZ-219 PO; +TRAZ150T78 PO
[2019-09-17 09:31] VITALS: BP 165/94
[2019-09-17] MEDS ORDERED: DOXY100C43 PO (09:44)
== END 2019-09-17 10:38 | disposition home or self-care (01) ==
LOC: ER 09:17
DX: L03.115 Cellulitis of right lower limb (principal); E11.9 Type 2 diabetes mellitus without complications; Z56.0 Unemployment, unspecified; Z88.0 Allergy status to penicillin; Z79.899 Other long term (current) drug therapy
CPT/HCPCS: 87070; 87077; 87186; 99283

== ENCOUNTER 2019-10-18 08:39 | Day surgery (SDC) | payer MEDICARE, MEDICAID ==
[2019-10-18] MEDS ORDERED: LIDOcaine 2% 5ml jelly ONE (09:37)
== END 2019-10-18 10:46 | disposition home or self-care (01) ==
LOC: WOUND CARE 08:39
PROVIDERS: ATTEND Surgery
DX: E11.622 Type 2 diabetes mellitus with other skin ulcer (principal); I83.012 Varicose veins of right lower extremity with ulcer of calf; L97.212 Non-pressure chronic ulcer of right calf with fat layer exposed; E11.65 Type 2 diabetes mellitus with hyperglycemia; E11.40 Type 2 diabetes mellitus with diabetic neuropathy, unspecified; F41.9 Anxiety disorder, unspecified; F32.9 Major depressive disorder, single episode, unspecified; Z79.899 Other long term (current) drug therapy
CPT/HCPCS: 36416; 82948; 97597; A4663; A6021; A6154; A6446

== ENCOUNTER 2019-10-29 08:33 | Day surgery (SDC) | payer MEDICARE, MEDICAID ==
[2019-10-29] MEDS ORDERED: LIDOcaine/PRILOcaine 5gm cream TP ONE (09:43)
[2019-10-30] MEDS ORDERED: LIDO700A32 TOP (14:40)
[2019-10-30] MEDS ORDERED: TRAM50TA2 PO (14:40)
[2019-10-30] MEDS ORDERED: IBUP-1984 PO (14:40)
== END 2019-10-29 11:48 | disposition home or self-care (01) ==
LOC: WOUND CARE 08:33
PROVIDERS: ATTEND Surgery
DX: E11.622 Type 2 diabetes mellitus with other skin ulcer (principal); I83.012 Varicose veins of right lower extremity with ulcer of calf; L97.212 Non-pressure chronic ulcer of right calf with fat layer exposed; E11.65 Type 2 diabetes mellitus with hyperglycemia; E11.40 Type 2 diabetes mellitus with diabetic neuropathy, unspecified; F41.9 Anxiety disorder, unspecified; F32.9 Major depressive disorder, single episode, unspecified; Z79.899 Other long term (current) drug therapy
CPT/HCPCS: 36416; 82948; 93970; 97597; A4663; A6021; A6154; A6446

== ENCOUNTER 2019-10-30 12:12 | Emergency (ER) | payer MEDICARE, MEDICAID ==
[~2019-10-30] VITALS: Ht 185.4 cm; Wt 154.2 kg
[2019-10-30 12:16] VITALS: BP 154/96
[2019-10-30] MEDS ORDERED: LIDO700A32 TOP (14:40)
[2019-10-30] MEDS ORDERED: TRAM50TA2 PO (14:40)
[2019-10-30] MEDS ORDERED: IBUP-1984 PO (14:40)
--- NOTE | 2019-10-30 15:09 | NUR ---
PT GIVEN INCENTIVE SPIROMETER AND EDUCATED PT HOW TO USE
== END 2019-10-30 15:32 | disposition home or self-care (01) ==
LOC: ER 12:12
DX: S22.42XA Multiple fractures of ribs, left side, initial encounter for closed fracture (principal); R00.0 Tachycardia, unspecified; E11.9 Type 2 diabetes mellitus without complications; F41.9 Anxiety disorder, unspecified; F32.9 Major depressive disorder, single episode, unspecified; F20.9 Schizophrenia, unspecified; G47.30 Sleep apnea, unspecified; Z88.0 Allergy status to penicillin; Z79.899 Other long term (current) drug therapy; Z56.0 Unemployment, unspecified; W01.0XXA Fall on same level from slipping, tripping and stumbling without subsequent striking against object, initial encounter; Y93.89 Activity, other specified; Y92.89 Other specified places as the place of occurrence of the external cause; Y99.8 Other external cause status
CPT/HCPCS: 71101; 99284

== ENCOUNTER 2019-11-06 08:25 | Day surgery (SDC) | payer MEDICARE, MEDICAID ==
[~2019-11-06 08:25] MED LIST changes: +IBUP-1984 PO; +LIDO700A32 TOP; +TRAM50TA2 PO
[2019-11-06] MEDS ORDERED: LIDOcaine/PRILOcaine 5gm cream TP ONE (08:42)
[2019-11-06] MEDS ORDERED: LIDOcaine 2% 5ml jelly ONE (08:46)
== END 2019-11-06 10:15 | disposition home or self-care (01) ==
LOC: WOUND CARE 08:25
PROVIDERS: ATTEND Surgery
DX: E11.622 Type 2 diabetes mellitus with other skin ulcer (principal); I83.012 Varicose veins of right lower extremity with ulcer of calf; L97.212 Non-pressure chronic ulcer of right calf with fat layer exposed; E11.65 Type 2 diabetes mellitus with hyperglycemia; E11.40 Type 2 diabetes mellitus with diabetic neuropathy, unspecified; F41.9 Anxiety disorder, unspecified; F32.9 Major depressive disorder, single episode, unspecified; Z79.899 Other long term (current) drug therapy
CPT/HCPCS: 36416; 82948; 97597; A4663; A6021; A6154; A6446

== ENCOUNTER 2019-11-13 08:18 | Day surgery (SDC) | payer MEDICARE, MEDICAID ==
[2019-11-13] MEDS ORDERED: LIDOcaine 2% 5ml jelly ONE (09:14)
== END 2019-11-13 10:52 | disposition home or self-care (01) ==
LOC: WOUND CARE 08:18
PROVIDERS: ATTEND Surgery
DX: E11.622 Type 2 diabetes mellitus with other skin ulcer (principal); I83.012 Varicose veins of right lower extremity with ulcer of calf; L97.212 Non-pressure chronic ulcer of right calf with fat layer exposed; E11.65 Type 2 diabetes mellitus with hyperglycemia; E11.42 Type 2 diabetes mellitus with diabetic polyneuropathy; K21.9 Gastro-esophageal reflux disease without esophagitis; G47.30 Sleep apnea, unspecified; F20.9 Schizophrenia, unspecified; F32.9 Major depressive disorder, single episode, unspecified; F41.9 Anxiety disorder, unspecified; Z79.899 Other long term (current) drug therapy
CPT/HCPCS: 36416; 82948; 97597; A4663; A6021; A6154; A6446

== ENCOUNTER 2019-11-20 08:06 | Day surgery (SDC) | payer MEDICARE, MEDICAID ==
[2019-11-20] MEDS ORDERED: LIDOcaine 2% 5ml jelly ONE (09:00)
== END 2019-11-20 09:44 | disposition home or self-care (01) ==
LOC: WOUND CARE 08:06
PROVIDERS: ATTEND Surgery
DX: E11.622 Type 2 diabetes mellitus with other skin ulcer (principal); I83.012 Varicose veins of right lower extremity with ulcer of calf; L97.212 Non-pressure chronic ulcer of right calf with fat layer exposed; E11.65 Type 2 diabetes mellitus with hyperglycemia; E11.42 Type 2 diabetes mellitus with diabetic polyneuropathy; K21.9 Gastro-esophageal reflux disease without esophagitis; G47.30 Sleep apnea, unspecified; F41.9 Anxiety disorder, unspecified; F32.9 Major depressive disorder, single episode, unspecified; F20.9 Schizophrenia, unspecified; Z79.899 Other long term (current) drug therapy
CPT/HCPCS: 36416; 82948; 97597; A4663; A6021; A6154; A6446

== ENCOUNTER 2019-11-27 08:25 | Outpatient (CLI) | payer MEDICARE, MEDICAID ==
[2019-11-27] MEDS ORDERED: LIDOcaine 2% 5ml jelly ONE (09:15)
== END 2019-11-27 10:17 | disposition home or self-care (01) ==
LOC: WOUND CARE 08:25 → EDSTATUS 08:30 → WOUND CARE 10:17
PROVIDERS: ATTEND Nurse Practitioner Family
DX: E11.622 Type 2 diabetes mellitus with other skin ulcer (principal); I83.012 Varicose veins of right lower extremity with ulcer of calf; L97.212 Non-pressure chronic ulcer of right calf with fat layer exposed; E11.65 Type 2 diabetes mellitus with hyperglycemia; E11.42 Type 2 diabetes mellitus with diabetic polyneuropathy; K21.9 Gastro-esophageal reflux disease without esophagitis; G47.30 Sleep apnea, unspecified; F41.9 Anxiety disorder, unspecified; F32.9 Major depressive disorder, single episode, unspecified; F20.9 Schizophrenia, unspecified; Z79.899 Other long term (current) drug therapy
CPT/HCPCS: 36416; 82948; G0463; A4663; A6021; A6212

== ENCOUNTER 2020-01-17 15:20 | Emergency (ER) | payer MEDICARE, MEDICAID ==
[~2020-01-17] VITALS: Ht 185.4 cm; Wt 150.0 kg
[~2020-01-17 15:20] MED LIST changes: -IBUP-1984 PO; -TRAM50TA2 PO
[2020-01-17] MEDS ORDERED: insulin regular, human U-100 3ml vial - multi-dose IV ONE (15:35)
[2020-01-17] MEDS ORDERED: normal saline 1000ML IV soln IVB ONE (15:35)
[2020-01-17 16:16] LABS: BASOPHILS # (AUTO) 0.1 X10'3 (0-0.2); BASOPHILS % (AUTO) 0.7 % (0-1); EOSINOPHILS # (AUTO) 0.3 X10'3 (0-0.9); EOSINOPHILS % (AUTO) 3.6 % (0-6); HEMOGLOBIN 14.2 g/dl (14.0-17.9); LYMPHOCYTES # (AUTO) 2.3 X10'3 (1.1-4.8); LYMPHOCYTES % (AUTO) 32.6 % (21-51); MEAN CORPUSCULAR HEMOGLOBIN 28.7 PG (27.0-31.0); MEAN CORPUSCULAR HGB CONC 33.8 g/dL (33.0-36.5); MEAN CORPUSCULAR VOLUME 84.7 FL (78-98); MEAN PLATELET VOLUME 9.8 FL (7.4-10.4); MONOCYTES # (AUTO) 0.4 X10'3 (0-0.9); MONOCYTES % (AUTO) 5.2 % (2-12); NEUTROPHILS % (AUTO) 57.9 % (42-75); PLATELET COUNT 138 X10'3 (140-440); RED BLOOD COUNT 4.96 X10'6 (4.70-6.10); RED CELL DISTRIBUTION WIDTH 13.2 % (11.5-14.5)
[2020-01-17 16:30] LABS: ALANINE AMINOTRANSFERASE 55 U/L (12-78); ALBUMIN 3.4 G/DL (3.4-5.0); ALBUMIN/GLOBULIN RATIO 0.9 (1.1-1.5); ALKALINE PHOSPHATASE 69 IU/L (46-116); ANION GAP 7 (8-16); ASPARTATE AMINO TRANSFERASE 32 U/L (10-37); BILIRUBIN,TOTAL 0.5 MG/DL (0.1-1.0); BLOOD UREA NITROGEN 8 MG/DL (7-18); BUN/CREATININE RATIO 10.8 (5.4-32.0); CALCIUM 8.9 MG/DL (8.5-10.1); CHLORIDE 105 MMOL/L (99-107); CREATININE 0.74 MG/DL (0.60-1.10); GLUCOSE 367 MG/DL (70-104); POTASSIUM 4.2 MMOL/L (3.5-5.1); SODIUM 137 MMOL/L (135-145); TOTAL CARBON DIOXIDE 25.5 MMOL/L (24-32); eGFR > 90 ML/MIN
[2020-01-17 17:07] VITALS: BP 138/103
== END 2020-01-17 17:11 | disposition home or self-care (01) ==
LOC: ER 15:20
DX: E11.65 Type 2 diabetes mellitus with hyperglycemia (principal); R42 Dizziness and giddiness; G47.30 Sleep apnea, unspecified; G89.29 Other chronic pain; F41.9 Anxiety disorder, unspecified; F32.9 Major depressive disorder, single episode, unspecified; F20.9 Schizophrenia, unspecified; Z56.0 Unemployment, unspecified; Z88.0 Allergy status to penicillin; Z79.899 Other long term (current) drug therapy
CPT/HCPCS: 36415; 80053; 82948; 85025; 96361; 96374; 99283; J7030; 99284; J1815

== ENCOUNTER 2020-03-15 18:50 | Emergency (ER) | payer MEDICARE, MEDICAID ==
[~2020-03-15] VITALS: Ht 188 cm; Wt 146.0 kg
[2020-03-15 18:54] VITALS: BP 151/97
== END 2020-03-15 20:10 | disposition home or self-care (01) ==
LOC: ER 18:51
DX: E11.65 Type 2 diabetes mellitus with hyperglycemia (principal); G89.29 Other chronic pain; F41.9 Anxiety disorder, unspecified; F32.9 Major depressive disorder, single episode, unspecified; F20.9 Schizophrenia, unspecified; G47.30 Sleep apnea, unspecified; Z56.0 Unemployment, unspecified
CPT/HCPCS: 82948; 99282

== ENCOUNTER 2021-09-18 13:47 | Emergency (ER) | payer MEDICARE, MEDICAID ==
[~2021-09-18] VITALS: Ht 182.9 cm; Wt 150.0 kg
[2021-09-18 15:04] LABS: BASOPHILS # (AUTO) 0.1 X10'3 (0-0.2); BASOPHILS % (AUTO) 0.9 % (0-1); EOSINOPHILS # (AUTO) 0.3 X10'3 (0-0.9); EOSINOPHILS % (AUTO) 4.3 % (0-6); HEMATOCRIT 42.3 % (42.0-52.0); HEMOGLOBIN 14.6 g/dl (14.0-17.9); LYMPHOCYTES # (AUTO) 2.7 X10'3 (1.1-4.8); LYMPHOCYTES % (AUTO) 36.7 % (21-51); MEAN CORPUSCULAR HEMOGLOBIN 29.4 PG (27.0-31.0); MEAN CORPUSCULAR HGB CONC 34.4 g/dL (33.0-36.5); MEAN CORPUSCULAR VOLUME 85.3 FL (78-98); MEAN PLATELET VOLUME 9.6 FL (7.4-10.4); MONOCYTES # (AUTO) 0.4 X10'3 (0-0.9); MONOCYTES % (AUTO) 5.5 % (2-12); NEUTROPHILS # (AUTO) 3.9 X10'3 (1.8-7.7); NEUTROPHILS % (AUTO) 52.6 % (42-75); PLATELET COUNT 194 X10'3 (140-440); RED BLOOD COUNT 4.96 X10'6 (4.70-6.10); RED CELL DISTRIBUTION WIDTH 13.7 % (11.5-14.5); WHITE BLOOD COUNT 7.3 X10'3 (4.5-11.0)
[2021-09-18 15:16] LABS: ALANINE AMINOTRANSFERASE 65 U/L (12-78); ALBUMIN 3.6 G/DL (3.4-5.0); ALBUMIN/GLOBULIN RATIO 0.9 (1.1-1.5); ALKALINE PHOSPHATASE 63 IU/L (46-116); ANION GAP 11 (8-16); ASPARTATE AMINO TRANSFERASE 55 U/L (10-37); BILIRUBIN,TOTAL 0.4 MG/DL (0.1-1.0); BLOOD UREA NITROGEN 11 MG/DL (7-18); CALCIUM 8.7 MG/DL (8.5-10.1); CHLORIDE 106 MMOL/L (99-107); CREATININE 0.92 MG/DL (0.60-1.10); GLUCOSE 251 MG/DL (70-104); SODIUM 141 MMOL/L (135-145); TOTAL CARBON DIOXIDE 24.2 MMOL/L (24-32); TOTAL PROTEIN 7.7 G/DL (6.4-8.2); eGFR 87 ML/MIN
[2021-09-18 15:25] LABS: POTASSIUM 4.1 MMOL/L (3.5-5.1)
[2021-09-18] MEDS ORDERED: LOSA1TAB36 PO (17:25)
[2021-09-18] MEDS ORDERED: INSU500I SQ ×2 (17:25)
[2021-09-18] MEDS ORDERED: DULA3PEN SQ (17:25)
[2021-09-18] MEDS ORDERED: MELO-102 PO (17:25)
[2021-09-18] MEDS ORDERED: ESCI5TAB17 PO (17:25)
[2021-09-18] MEDS ORDERED: METO-384 PO (17:25)
[2021-09-18] MEDS ORDERED: ERGO500056 PO (17:29)
[2021-09-18 18:06] VITALS: BP 138/93
== END 2021-09-18 18:01 | disposition home or self-care (01) ==
LOC: ER 13:47
DX: R07.2 Precordial pain (principal); G89.29 Other chronic pain; E11.9 Type 2 diabetes mellitus without complications; G47.30 Sleep apnea, unspecified; Z59.00 Homelessness unspecified; Z88.0 Allergy status to penicillin; Z79.4 Long term (current) use of insulin; Z79.899 Other long term (current) drug therapy
CPT/HCPCS: 36415; 71045; 80053; 83880; 84484; 85025; 93005; 99285

== ENCOUNTER 2021-10-19 13:31 | Emergency (ER) | payer MEDICARE, MEDICAID ==
[~2021-10-19] VITALS: Ht 182.9 cm; Wt 152.3 kg
[~2021-10-19 13:31] MED LIST changes: -DULA1.5P SQ; +DULA3PEN SQ; +ERGO500056 PO; +ESCI5TAB17 PO; +INSU500I SQ; -LIDO700A32 TOP; +LOSA1TAB36 PO; +MELO-102 PO; -METF-436 PO; +METO-384 PO
[2021-10-19 13:55] LABS: BASOPHILS # (AUTO) 0.1 X10'3 (0-0.2); BASOPHILS % (AUTO) 1.2 % (0-1); EOSINOPHILS # (AUTO) 0.4 X10'3 (0-0.9); EOSINOPHILS % (AUTO) 5.1 % (0-6); HEMATOCRIT 46.3 % (42.0-52.0); HEMOGLOBIN 15.7 g/dl (14.0-17.9); LYMPHOCYTES # (AUTO) 2.9 X10'3 (1.1-4.8); LYMPHOCYTES % (AUTO) 40.1 % (21-51); MEAN CORPUSCULAR HEMOGLOBIN 29.2 PG (27.0-31.0); MEAN CORPUSCULAR HGB CONC 33.9 g/dL (33.0-36.5); MEAN PLATELET VOLUME 9.1 FL (7.4-10.4); MONOCYTES # (AUTO) 0.4 X10'3 (0-0.9); MONOCYTES % (AUTO) 5.6 % (2-12); NEUTROPHILS # (AUTO) 3.5 X10'3 (1.8-7.7); PLATELET COUNT 183 X10'3 (140-440); RED BLOOD COUNT 5.38 X10'6 (4.70-6.10); RED CELL DISTRIBUTION WIDTH 13.2 % (11.5-14.5); WHITE BLOOD COUNT 7.3 X10'3 (4.5-11.0)
[2021-10-19 14:18] LABS: ALANINE AMINOTRANSFERASE 83 U/L (12-78); ALKALINE PHOSPHATASE 59 IU/L (46-116); ANION GAP 9 (8-16); ASPARTATE AMINO TRANSFERASE 52 U/L (10-37); BILIRUBIN,TOTAL 0.4 MG/DL (0.1-1.0); BLOOD UREA NITROGEN 7 MG/DL (7-18); BUN/CREATININE RATIO 9.3 (5.4-32.0); CHLORIDE 105 MMOL/L (99-107); CREATININE 0.75 MG/DL (0.60-1.10); GLUCOSE 145 MG/DL (70-104); SODIUM 142 MMOL/L (135-145); TOTAL CARBON DIOXIDE 27.8 MMOL/L (24-32); TOTAL PROTEIN 8.2 G/DL (6.4-8.2); eGFR > 90 ML/MIN
[2021-10-19 14:23] LABS: CALCIUM 9.4 MG/DL (8.5-10.1)
[2021-10-19] MEDS ORDERED: aspirin 81mg tab.chew PO ONE (16:05)
[2021-10-19] MEDS ORDERED: nitroGLYCERIN 0.2mg/hour patch TD ONE (16:05)
[2021-10-19 18:25] VITALS: BP 127/87
== END 2021-10-19 18:27 | disposition home or self-care (01) ==
LOC: ER 13:32
DX: R07.89 Other chest pain (principal); E11.9 Type 2 diabetes mellitus without complications; G89.29 Other chronic pain; Z56.0 Unemployment, unspecified; G47.30 Sleep apnea, unspecified; Z88.0 Allergy status to penicillin; Z79.899 Other long term (current) drug therapy; Z79.4 Long term (current) use of insulin
CPT/HCPCS: 36415; 71045; 80053; 83880; 84484; 85025; 93005; 99285

== ENCOUNTER 2022-03-10 20:12 | Emergency (ER) | payer MEDICARE, MEDICAID ==
[~2022-03-10] VITALS: Ht 182.9 cm; Wt 147.7 kg
[2022-03-10] MEDS ORDERED: CEPH-585 PO (22:35)
[2022-03-10] MEDS ORDERED: cephalexin 500mg capsule PO ONE (22:40)
[2022-03-10 22:50] VITALS: BP 134/91
== END 2022-03-10 22:52 | disposition home or self-care (01) ==
LOC: ER 20:12
DX: L03.115 Cellulitis of right lower limb (principal); E11.9 Type 2 diabetes mellitus without complications; G89.29 Other chronic pain; F41.9 Anxiety disorder, unspecified; F32.A Depression, unspecified; F20.9 Schizophrenia, unspecified; Z56.0 Unemployment, unspecified; Z88.0 Allergy status to penicillin; Z79.4 Long term (current) use of insulin; Z79.899 Other long term (current) drug therapy
CPT/HCPCS: 99283

== ENCOUNTER 2022-04-23 13:35 | Inpatient (IN) | payer MEDICARE, MEDICAID ==
[~2022-04-23] VITALS: Ht 182.9 cm; Wt 156.0 kg
[~2022-04-23 13:35] MED LIST changes: +CEPH-585 PO
[2022-04-23 14:13] LABS: CLARITY,URINE CLEAR (Clear); COLOR,URINE YELLOW (Yellow); GLUCOSE, URINE >=1000 mg/dl (Neg); KETONES,URINE NEGATIVE (Neg); LEUKOCYTE ESTERASE ,URINE NEGATIVE (Neg); NITRITES, URINE NEGATIVE (Neg); OCCULT BLOOD,URINE TRACE-INTACT (Neg); PROTEIN,URINE NEGATIVE (Neg); UROBILINOGEN,URINE 0.2 E.U/dL (0.2-1.0)
[2022-04-23 14:17] LABS: UA COLLECTION TYPE CLN CATCH MIDSTREAM
[2022-04-23 14:29] LABS: SQUAMOUS EPITHELIAL CELL,UR FEW /LPF (FEW)
[2022-04-23 14:30] LABS: BACTERIA,URINE NONE SEEN /HPF (Neg); RBC,URINE 0-2 /HPF (0-2); WBC,URINE 0-4 /HPF (0-4)
[2022-04-23 14:32] LABS: BASOPHILS # (AUTO) 0.1 X10'3 (0-0.2); BASOPHILS % (AUTO) 1.1 % (0-1); EOSINOPHILS # (AUTO) 0.2 X10'3 (0-0.9); EOSINOPHILS % (AUTO) 1.9 % (0-6); HEMATOCRIT 41.4 % (42.0-52.0); LYMPHOCYTES # (AUTO) 2.4 X10'3 (1.1-4.8); MEAN CORPUSCULAR HEMOGLOBIN 29.1 PG (27.0-31.0); MEAN CORPUSCULAR VOLUME 85.7 FL (78-98); MEAN PLATELET VOLUME 8.1 FL (7.4-10.4); MONOCYTES # (AUTO) 0.6 X10'3 (0-0.9); MONOCYTES % (AUTO) 6.2 % (2-12); NEUTROPHILS # (AUTO) 6.4 X10'3 (1.8-7.7); NEUTROPHILS % (AUTO) 65.8 % (42-75); PLATELET COUNT 302 X10'3 (140-440); RED BLOOD COUNT 4.83 X10'6 (4.70-6.10); RED CELL DISTRIBUTION WIDTH 14.3 % (11.5-14.5); WHITE BLOOD COUNT 9.8 X10'3 (4.5-11.0)
[2022-04-23 15:02] LABS: ALANINE AMINOTRANSFERASE 38 U/L (12-78); ALBUMIN 3.2 G/DL (3.4-5.0); ALBUMIN/GLOBULIN RATIO 0.6 (1.1-1.5); ALKALINE PHOSPHATASE 82 IU/L (46-116); ANION GAP 9 (8-16); ASPARTATE AMINO TRANSFERASE 34 U/L (10-37); BILIRUBIN,TOTAL 0.5 MG/DL (0.1-1.0); BLOOD UREA NITROGEN 8 MG/DL (7-18); CALCIUM 8.9 MG/DL (8.5-10.1); CHLORIDE 101 MMOL/L (99-107); CREATININE 0.73 MG/DL (0.60-1.10); GLUCOSE 243 MG/DL (70-104); SODIUM 133 MMOL/L (135-145); TOTAL CARBON DIOXIDE 23.3 MMOL/L (24-32); eGFR > 90 ML/MIN
[2022-04-23] MEDS ORDERED: POTASSIUM BICARB 20meq eff tab 20 MEQ TABLET.EFF PO PRN ×2 (18:05)
[2022-04-23] MEDS ORDERED: magnesium 2GM in 50ml NS 50 ML IV PRN (18:05)
[2022-04-23] MEDS ORDERED: HYDROcodone/acetaminophen 5mg/325mg tablet PO PRN (18:05)
[2022-04-23] MEDS ORDERED: morphine 2 MG/ML inj. syringe IV PRN ×2 (18:05)
[2022-04-23] MEDS ORDERED: potassium CL 10mEq/100ml bag 100 ML IV PRN (18:05)
[2022-04-23] MEDS ORDERED: magnesium 4gm in 100ml NS 100 ML IV PRN (18:05)
[2022-04-23] MEDS ORDERED: ondansetron/PF 4mg/2ml inj IV PRN (18:05)
[2022-04-23] MEDS ORDERED: magnesium Cl slow-release 64mg tablet PO PRN (18:05)
[2022-04-23] MEDS ORDERED: bisacodyl 10mg suppository rectal RC PRN (18:05)
[2022-04-23] MEDS ORDERED: acetaminophen 325mg tablet PO PRN ×2 (18:05)
[2022-04-23] MEDS ORDERED: glucagon, human recombinant 1mg kit SUBCUT PRN (18:10)
[2022-04-23] MEDS ORDERED: MESSAGE TO PHARMACY PO ONE (18:10)
[2022-04-23] MEDS ORDERED: DEXTROSE 15 GM of carb/4 tabs (each vial/BOTTLE has 4 tablets) PO PRN ×2 (18:10)
[2022-04-23] MEDS ORDERED: insulin Lispro (HumaLOG) vial - multi-dose SQ SCH (18:10)
[2022-04-23] MEDS ORDERED: dextrose 50%-water 50ml dispensing syringe IV PRN ×2 (18:10)
[2022-04-23] MEDS ORDERED: vancomycin/NS 1 GM ADD-VANTAGE 250 ML IV SCH (19:00)
[2022-04-23] MEDS: normal saline 1000ml 1,000 ML IV SCH (19:08)
[2022-04-23] MEDS: vancomycin/NS 1 GM ADD-VANTAGE 250 ML IV SCH (19:12)
--- NOTE | 2022-04-23 19:51 | NUR ---
REPORT RECEIVED FROM RASHMI ZARATE IN ER, WILL ASSUME CARE WHEN PATIENT ARRIVES.
[2022-04-23] MEDS: K and/or MAG REPLACEMENT MC SCH (20:00)
--- NOTE | 2022-04-23 20:25 | NUR ---
PATIENT IN THE ROOM RESTING.
[2022-04-23 20:30] VITALS: BP 144/65
[2022-04-23] MEDS ORDERED: ESCI20TA39 PO (20:52)
[2022-04-23] MEDS ORDERED: CEPH-194 PO (20:52)
[2022-04-23] MEDS ORDERED: DOXY100T2 PO (20:52)
[2022-04-23] MEDS ORDERED: OMEP40CA21 PO (20:52)
[2022-04-23] MEDS: insulin glargine (Lantus) pen - multi-dose SQ SCH (21:00)
[2022-04-23] MEDS ORDERED: temazepam 15mg capsule PO PRN (21:00)
[2022-04-23] MEDS: heparin, porcine 5000 units/ml vial SQ SCH (21:33)
[2022-04-23 22:00] VITALS: BP 135/77
[2022-04-24] MEDS: cefepime 2g/NS 100ml ADVANTAGE 100 ML IV SCH ×3 (00:34→16:22)
[2022-04-24] MEDS: vancomycin/NS 1 GM ADD-VANTAGE 250 ML IV SCH ×3 (03:38→20:49)
[2022-04-24] MEDS: normal saline 1000ml 1,000 ML IV SCH ×3 (03:40→20:49)
[2022-04-24 06:00] VITALS: BP 137/80
--- NOTE | 2022-04-24 06:16 | NUR ---
Problems reprioritized. Patient report given, questions answered & plan of care reviewed with MARY JANE ZARATE.
[2022-04-24] MEDS: K and/or MAG REPLACEMENT MC SCH ×2 (08:00→20:00)
[2022-04-24 08:10] LABS: BASOPHILS # (AUTO) 0.1 X10'3 (0-0.2); BASOPHILS % (AUTO) 0.8 % (0-1); EOSINOPHILS # (AUTO) 0.2 X10'3 (0-0.9); EOSINOPHILS % (AUTO) 2.1 % (0-6); HEMOGLOBIN 12.9 g/dl (14.0-17.9); LYMPHOCYTES # (AUTO) 2.1 X10'3 (1.1-4.8); LYMPHOCYTES % (AUTO) 26.2 % (21-51); MEAN CORPUSCULAR HEMOGLOBIN 29.1 PG (27.0-31.0); MEAN CORPUSCULAR HGB CONC 33.9 g/dL (33.0-36.5); MEAN CORPUSCULAR VOLUME 86.1 FL (78-98); MONOCYTES # (AUTO) 0.5 X10'3 (0-0.9); MONOCYTES % (AUTO) 6.5 % (2-12); NEUTROPHILS # (AUTO) 5.2 X10'3 (1.8-7.7); NEUTROPHILS % (AUTO) 64.4 % (42-75); PLATELET COUNT 283 X10'3 (140-440); RED BLOOD COUNT 4.41 X10'6 (4.70-6.10); RED CELL DISTRIBUTION WIDTH 14.2 % (11.5-14.5); WHITE BLOOD COUNT 8.1 X10'3 (4.5-11.0)
[2022-04-24 08:25] LABS: ALANINE AMINOTRANSFERASE 34 U/L (12-78); ALBUMIN 2.7 G/DL (3.4-5.0); ALBUMIN/GLOBULIN RATIO 0.5 (1.1-1.5); ALKALINE PHOSPHATASE 70 IU/L (46-116); ANION GAP 10 (8-16); ASPARTATE AMINO TRANSFERASE 37 U/L (10-37); BILIRUBIN,TOTAL 0.8 MG/DL (0.1-1.0); BLOOD UREA NITROGEN 10 MG/DL (7-18); BUN/CREATININE RATIO 16.9 (5.4-32.0); CALCIUM 8.3 MG/DL (8.5-10.1); CHLORIDE 104 MMOL/L (99-107); CREATININE 0.59 MG/DL (0.60-1.10); GLUCOSE 145 MG/DL (70-104); POTASSIUM 4.1 MMOL/L (3.5-5.1); SODIUM 136 MMOL/L (135-145); TOTAL PROTEIN 7.9 G/DL (6.4-8.2); eGFR > 90 ML/MIN
[2022-04-24] MEDS: heparin, porcine 5000 units/ml vial SQ SCH ×2 (09:02→20:53)
[2022-04-24 10:00] VITALS: BP 141/89
[2022-04-24] MEDS ORDERED: non-formulary drug (Aripiprazole (Abilify Maintena) 400 MG) IM SCH (10:40)
--- NOTE | 2022-04-24 11:10 | NUR ---
Pt stated he took his own med Abilify on last Tue. and will not need today's q30day dose.
--- NOTE | 2022-04-24 11:55 | NUR ---
DM consult: Pt with T2DM, current A1c 8.8%. Noted pt with multiple wounds over RLE in healing stages per MD note. Wound care has been consulted, pending assessment at this time. Pt seen at bedside for written and verbal protein and DM nutrition therapy educations. Pt reports seeing a physician about q 6 months for DM management, states he takes his medications per rx without issues and recently had his Trulicity discontinued. Pt states he has a CGM so frequently checks his blood sugars. Per pt his A1c was 11.5% at physician visit in December of this year and states he has made some gradual dietary changes to improve DM management. Pt denies questions at this time. Pt endorses a good appetite and requests double protein TID, d/w dietary. Pt denies food allergies though reports disliking tomatoes, d/w dietary. Pt denies difficulty chewing or swallowing. RD contact information provided and pt encouraged to reach out if needed. Will continue to follow. Addendum: 04/24/22 at [address] Amended: Links added.
[2022-04-24] MEDS: gabapentin 300mg capsule PO SCH ×2 (13:14→20:49)
[2022-04-24] MEDS: HYDROcodone/acetaminophen 10/325mg tab PO PRN ×2 (15:40→20:49)
[2022-04-24 18:00] VITALS: BP 144/85
[2022-04-24] MEDS ORDERED: VANCOMYCIN LEVEL IV ONE (18:30)
--- NOTE | 2022-04-24 18:49 | NUR ---
Patient in room ORTHO 4014. I have received report from MARY JANE ZARATE and had the opportunity to ask questions and assume patient care.
[2022-04-24] MEDS ORDERED: traZODone 150mg tablet PO SCH (21:00)
[2022-04-24] MEDS: insulin glargine (Lantus) pen - multi-dose SQ SCH (21:12)
[2022-04-24 22:11] VITALS: BP 140/85
[2022-04-25] MEDS: cefepime 2g/NS 100ml ADVANTAGE 100 ML IV SCH ×2 (00:09→08:15)
[2022-04-25] MEDS: vancomycin/NS 1 GM ADD-VANTAGE 250 ML IV SCH ×2 (03:54→11:07)
--- NOTE | 2022-04-25 06:08 | NUR ---
Problems reprioritized. Patient report given, questions answered & plan of care reviewed with AIDAN ZARATE.
[2022-04-25 06:10] VITALS: BP 133/66
[2022-04-25 06:15] LABS: BASOPHILS % (AUTO) 0.7 % (0-1); EOSINOPHILS # (AUTO) 0.1 X10'3 (0-0.9); EOSINOPHILS % (AUTO) 1.6 % (0-6); HEMATOCRIT 37.2 % (42.0-52.0); HEMOGLOBIN 12.6 g/dl (14.0-17.9); LYMPHOCYTES % (AUTO) 28.8 % (21-51); MEAN CORPUSCULAR HEMOGLOBIN 29.1 PG (27.0-31.0); MEAN CORPUSCULAR HGB CONC 33.9 g/dL (33.0-36.5); MEAN PLATELET VOLUME 8.6 FL (7.4-10.4); MONOCYTES # (AUTO) 0.4 X10'3 (0-0.9); MONOCYTES % (AUTO) 5.4 % (2-12); NEUTROPHILS # (AUTO) 4.3 X10'3 (1.8-7.7); NEUTROPHILS % (AUTO) 63.5 % (42-75); PLATELET COUNT 277 X10'3 (140-440); RED BLOOD COUNT 4.33 X10'6 (4.70-6.10); RED CELL DISTRIBUTION WIDTH 13.9 % (11.5-14.5); WHITE BLOOD COUNT 6.8 X10'3 (4.5-11.0)
--- NOTE | 2022-04-25 06:30 | NUR ---
Patient in room ORTHO 4014. I have received report from Patricia ZARATE and had the opportunity to ask questions and assume patient care.
[2022-04-25 06:57] LABS: ALANINE AMINOTRANSFERASE 29 U/L (12-78); ALBUMIN 2.4 G/DL (3.4-5.0); ALBUMIN/GLOBULIN RATIO 0.5 (1.1-1.5); ALKALINE PHOSPHATASE 65 IU/L (46-116); ANION GAP 8 (8-16); ASPARTATE AMINO TRANSFERASE 35 U/L (10-37); BILIRUBIN,TOTAL 0.5 MG/DL (0.1-1.0); BLOOD UREA NITROGEN 11 MG/DL (7-18); CALCIUM 8.2 MG/DL (8.5-10.1); CHLORIDE 106 MMOL/L (99-107); CREATININE 0.58 MG/DL (0.60-1.10); GLUCOSE 180 MG/DL (70-104); POTASSIUM 3.7 MMOL/L (3.5-5.1); SODIUM 136 MMOL/L (135-145); TOTAL CARBON DIOXIDE 21.6 MMOL/L (24-32); TOTAL PROTEIN 7.4 G/DL (6.4-8.2); eGFR > 90 ML/MIN
[2022-04-25] MEDS ORDERED: EMPAGLIFLOZIN 25 MG TABLET PO SCH (08:00)
[2022-04-25] MEDS ORDERED: pantoprazole 40mg Tablet.DR PO SCH (08:00)
[2022-04-25] MEDS ORDERED: metoprolol succinate 25mg (24-HOUR) SR. Tablet PO SCH (08:00)
[2022-04-25] MEDS ORDERED: ESCITALOPRAM OXALATE 5 MG TABLET PO SCH (08:00)
[2022-04-25] MEDS: gabapentin 300mg capsule PO SCH ×2 (08:14→12:52)
[2022-04-25] MEDS: heparin, porcine 5000 units/ml vial SQ SCH (08:15)
[2022-04-25 10:00] VITALS: BP 129/77
[2022-04-25] MEDS: normal saline 1000ml 1,000 ML IV SCH (10:05)
[2022-04-25] MEDS ORDERED: LINE600T11 PO (11:35)
[2022-04-25] MEDS ORDERED: VANCOmycin 1250MG/NS 250ml Bag 250 ML IV SCH (19:00)
[2022-04-26] MEDS ORDERED: VANCOMYCIN LEVEL IV ONE (18:30)
--- NOTE | 2022-04-30 13:28 | NUR ---
Case Management DC follow up: Spoke with Patient via telephone. S/P: Patient Reports: Denies: Emergent SOB, resp distress, N/V, dehydration,excessive thirst, fatigue, fever, chills weakness, blurry vision. Verbalizes he is monitoring his blood glucose, and readings have been around 200, he is aware of his A1c. Verbalizes talking with RD ,while in the hospital ,helped regarding meal planing. Verbalizes he has been to the wound clinic.Verbalizes dressing to leg intact with small amt of yellow serious drainage. Verbalizes understanding of s/s that warrant a 9-11/ER visit for further evaluation.Patient acknowledges need to obtain CBC, and procalcitonin lab draw .Verbalizes he has scheduled follow up appointment with Dr. Borrego at [facility].G Verbalizes understanding of new Rx:, why prescribed ; continues/resumes current Rx as ordered.Verbalizes the staff were great.Needs met, questions/concerns addressed at DC. No further questions/concerns regarding recent hospital stay, and/or DC status at this time.
== END 2022-04-25 16:15 | disposition home or self-care (01) | DRG 638 ==
LOC: ER 13:36 → ED HOLD 18:08 → ORTHO 4S 20:17
PROVIDERS: ADMIT Internal Medicine; ATTEND Internal Medicine
DX: E11.628 Type 2 diabetes mellitus with other skin complications (principal); L03.116 Cellulitis of left lower limb; E87.1 Hypo-osmolality and hyponatremia; Z68.42 Body mass index [BMI] 45.0-49.9, adult; E11.51 Type 2 diabetes mellitus with diabetic peripheral angiopathy without gangrene; E11.65 Type 2 diabetes mellitus with hyperglycemia; F20.9 Schizophrenia, unspecified; E66.01 Morbid (severe) obesity due to excess calories; G47.30 Sleep apnea, unspecified; I87.2 Venous insufficiency (chronic) (peripheral); F32.A Depression, unspecified; F41.9 Anxiety disorder, unspecified; G89.29 Other chronic pain; Z81.8 Family history of other mental and behavioral disorders; Z56.0 Unemployment, unspecified; Z88.0 Allergy status to penicillin
CPT/HCPCS: 36415; 73590; 73610; 73630; 80048; 80053; 80202; 81001; 82948; 83036; 83605; 84145; 85025; 85651; 86140; 87040; 87081; 97116; 97161; 97530; 99285; A6212; G0378; J0692; J1644; J1815; J3370; J7030

== ENCOUNTER 2022-05-11 09:21 | Outpatient (CLI) | payer MEDICARE, MEDICAID ==
[~2022-05-11 09:21] MED LIST changes: -CEPH-585 PO; -DULA3PEN SQ; +ESCI20TA39 PO; -ESCI5TAB17 PO; -LOSA1TAB36 PO; -MELO-102 PO; +OMEP40CA21 PO
== END 2022-05-11 23:59 | disposition home or self-care (01) ==
LOC: VAS 09:21
PROVIDERS: ATTEND Family Medicine
DX: I77.1 Stricture of artery (principal)
CPT/HCPCS: 93925

== ENCOUNTER 2022-07-14 08:46 | Emergency (ER) | payer MEDICARE, MEDICAID ==
[~2022-07-14] VITALS: Ht 182.9 cm; Wt 147.7 kg
[2022-07-14 08:58] VITALS: BP 155/93
[2022-07-14] MEDS ORDERED: ketorolac trometh. 30mg/ml inj. IM ONE (09:55)
--- NOTE | 2022-07-14 10:35 | NUR ---
30 mg IM Toradol wasted with OLIVIER Omalley
[2022-07-14] MEDS ORDERED: oxyCODONE IR 5mg (immed. release) tablet PO ONE (10:50)
[2022-07-14 11:16] LABS: BASOPHILS % (AUTO) 0.7 % (0-1); EOSINOPHILS # (AUTO) 0.2 X10'3 (0-0.9); EOSINOPHILS % (AUTO) 3.5 % (0-6); HEMATOCRIT 40.7 % (42.0-52.0); HEMOGLOBIN 13.8 g/dl (14.0-17.9); LYMPHOCYTES # (AUTO) 2.1 X10'3 (1.1-4.8); LYMPHOCYTES % (AUTO) 32.5 % (21-51); MEAN CORPUSCULAR HEMOGLOBIN 28.9 PG (27.0-31.0); MEAN CORPUSCULAR HGB CONC 33.9 g/dL (33.0-36.5); MEAN CORPUSCULAR VOLUME 85.3 FL (78-98); MEAN PLATELET VOLUME 9.6 FL (7.4-10.4); MONOCYTES # (AUTO) 0.4 X10'3 (0-0.9); MONOCYTES % (AUTO) 6.3 % (2-12); NEUTROPHILS # (AUTO) 3.7 X10'3 (1.8-7.7); PLATELET COUNT 142 X10'3 (140-440); RED BLOOD COUNT 4.77 X10'6 (4.70-6.10); WHITE BLOOD COUNT 6.4 X10'3 (4.5-11.0)
[2022-07-14 11:33] LABS: ALANINE AMINOTRANSFERASE 25 U/L (12-78); ALBUMIN 3.6 G/DL (3.4-5.0); ALBUMIN/GLOBULIN RATIO 0.9 (1.1-1.5); ALKALINE PHOSPHATASE 60 IU/L (46-116); ANION GAP 11 (8-16); ASPARTATE AMINO TRANSFERASE 20 U/L (10-37); BILIRUBIN,TOTAL 0.6 MG/DL (0.1-1.0); BLOOD UREA NITROGEN 9 MG/DL (7-18); BUN/CREATININE RATIO 13.8 (5.4-32.0); CALCIUM 8.6 MG/DL (8.5-10.1); CHLORIDE 105 MMOL/L (99-107); CREATININE 0.65 MG/DL (0.60-1.10); GLUCOSE 201 MG/DL (70-104); POTASSIUM 4.2 MMOL/L (3.5-5.1); SODIUM 139 MMOL/L (135-145); TOTAL CARBON DIOXIDE 23.2 MMOL/L (24-32); TOTAL PROTEIN 7.8 G/DL (6.4-8.2); eGFR > 90 ML/MIN
[2022-07-14 11:37] LABS: LIPASE 77 U/L (73-393); MAGNESIUM 1.8 MG/DL (1.5-2.4)
[2022-07-14] MEDS ORDERED: OXYC-481 PO (13:36)
== END 2022-07-14 13:51 | disposition home or self-care (01) ==
LOC: ER 08:46
DX: R07.81 Pleurodynia (principal); E11.9 Type 2 diabetes mellitus without complications; G89.29 Other chronic pain; Z88.0 Allergy status to penicillin; Z56.0 Unemployment, unspecified
CPT/HCPCS: 36415; 71046; 80053; 83690; 83735; 84484; 85025; 93005; 99285

== ENCOUNTER → 2022-11-03 | Emergency (ER) | payer MEDICARE, MEDICAID ==
[~2022-11-03] VITALS: Ht 185.4 cm; Wt 147.3 kg
[~2022-11-03] MED LIST changes: +CEPH250T PO
[2022-11-03 10:23] VITALS: BP 139/82
== END | disposition home or self-care (01) ==
LOC: ER 09:43
DX: I87.2 Venous insufficiency (chronic) (peripheral) (principal); L03.115 Cellulitis of right lower limb; G89.29 Other chronic pain; M54.9 Dorsalgia, unspecified; F31.9 Bipolar disorder, unspecified; F20.9 Schizophrenia, unspecified; Z56.0 Unemployment, unspecified; Z88.0 Allergy status to penicillin; Z79.899 Other long term (current) drug therapy; Z79.1 Long term (current) use of non-steroidal anti-inflammatories (NSAID); Z79.2 Long term (current) use of antibiotics
CPT/HCPCS: 93971; 99284

== ENCOUNTER 2024-02-01 12:39 | Emergency (ER) | payer MEDICARE ==
[~2024-02-01] VITALS: Ht 182.9 cm; Wt 126.3 kg
[~2024-02-01 12:39] MED LIST changes: -ARIP400S2 IM; +ARIP400S3 IM; -CEPH250T PO; +EMPA10TA PO; -EMPA25TA PO; -ERGO500056 PO; -GABA-532 PO; +GABA600T13 PO; +LACT1CAP26 PO; +LINE600T14 PO; +METF-438 PO; -METO-384 PO; +OXYC-658 PO; +POTA-197 PO
[2024-02-01 12:43] VITALS: BP 123/75; PULSE 84; RESP 18; TEMP 97.1; O2SAT 98
== END 2024-02-01 21:45 | disposition left against medical advice (07) ==
LOC: ER 12:40
DX: R60.0 Localized edema (principal); Z53.21 Procedure and treatment not carried out due to patient leaving prior to being seen by health care provider
CPT/HCPCS: 99281

== ENCOUNTER 2024-09-26 13:28 | Emergency (ER) | payer MEDICARE, MEDICAID ==
[~2024-09-26] VITALS: Ht 182.9 cm; Wt 141.7 kg
[~2024-09-26 13:28] MED LIST changes: +GABA-1405 PO; -GABA600T13 PO
[2024-09-26 13:52] VITALS: BP 132/73; PULSE 83; TEMP 97.8; O2SAT 97
[2024-09-26] MEDS: ketorolac trometh 30MG/ML vial 30 MG/ML VIAL IM ONE (17:53)
[2024-09-26 18:01] VITALS: RESP 18
== END 2024-09-26 18:02 | disposition home or self-care (01) ==
LOC: ER 13:29
DX: M25.571 Pain in right ankle and joints of right foot (principal); E78.00 Pure hypercholesterolemia, unspecified; I10 Essential (primary) hypertension; G47.30 Sleep apnea, unspecified; E11.9 Type 2 diabetes mellitus without complications; G89.29 Other chronic pain; F41.9 Anxiety disorder, unspecified; F32.A Depression, unspecified; F20.9 Schizophrenia, unspecified; Z56.0 Unemployment, unspecified; Z88.0 Allergy status to penicillin; Z79.4 Long term (current) use of insulin; Z79.84 Long term (current) use of oral hypoglycemic drugs; Z79.899 Other long term (current) drug therapy
CPT/HCPCS: 73590; 73610; 96372; 99283; J1885

== ENCOUNTER 2025-02-28 20:09 | Inpatient (IN) | payer MEDICARE, MEDICAID ==
[~2025-02-28] VITALS: Ht 182.9 cm; Wt 137.7 kg
[2025-02-28 20:51] LABS: BASOPHILS % (AUTO) 0.4 % (0-1); EOSINOPHILS # (AUTO) 0.1 X10'3 (0-0.9); EOSINOPHILS % (AUTO) 1.6 % (0-6); HEMATOCRIT 45.3 % (42.0-52.0); HEMOGLOBIN 15.5 g/dl (14.0-17.9); LYMPHOCYTES # (AUTO) 2.5 X10'3 (1.1-4.8); LYMPHOCYTES % (AUTO) 27.7 % (21-51); MEAN CORPUSCULAR HEMOGLOBIN 28.6 PG (27.0-31.0); MEAN CORPUSCULAR HGB CONC 34.2 g/dL (33.0-36.5); MEAN CORPUSCULAR VOLUME 83.6 FL (78-98); MEAN PLATELET VOLUME 9.2 FL (7.4-10.4); MONOCYTES # (AUTO) 0.6 X10'3 (0-0.9); MONOCYTES % (AUTO) 6.8 % (2-12); NEUTROPHILS # (AUTO) 5.7 X10'3 (1.8-7.7); NEUTROPHILS % (AUTO) 63.5 % (42-75); PLATELET COUNT 217 X10'3 (140-440); RED BLOOD COUNT 5.42 X10'6 (4.70-6.10); RED CELL DISTRIBUTION WIDTH 13.6 % (11.5-14.5)
[2025-02-28 21:03] LABS: ALANINE AMINOTRANSFERASE 55 U/L (12-78); ALBUMIN 4.4 G/DL (3.4-5.0); ALBUMIN/GLOBULIN RATIO 1.2 (1.1-1.5); ALKALINE PHOSPHATASE 87 IU/L (46-116); ANION GAP 16 (8-16); ASPARTATE AMINO TRANSFERASE 44 U/L (10-37); BILIRUBIN,TOTAL 1.6 MG/DL (0.1-1.0); BLOOD UREA NITROGEN 10 MG/DL (7-18); CALCIUM 9.3 MG/DL (8.5-10.1); CHLORIDE 98 MMOL/L (99-107); CREATININE 0.83 MG/DL (0.60-1.10); GLUCOSE 259 MG/DL (70-104); SODIUM 136 MMOL/L (135-145); TOTAL CARBON DIOXIDE 22.5 MMOL/L (24-32); eCRCL 114 ML/MIN; eGFR > 90 ML/MIN
[2025-02-28 21:13] LABS: ETHANOL < 10 MG/DL (<10); THYROID STIMULATING HORMONE 1.42 ulU/ml (0.34-4.50)
[2025-02-28] MEDS ORDERED: EMPA25TA PO (21:22)
[2025-02-28] MEDS ORDERED: MELO-102 PO (21:22)
--- NOTE | 2025-02-28 21:25 | Physician Documentation ---
History of Present Illness ~ Chief Complaint: Mental Health Eval Stated Complaint: SI Time Seen by MD: 20:37 Primary Medical Doctor: Dr. Borrego Mode of Arrival: Ambulatory HPI 54 Year old male presents to the ED with a complaint of suicide ideation. He states that he spent the day walking around helping his brother around [place] so his brother can meet his appointments. However after all of the walking throughout the day he began suicidal ideations. States he felt overwhelmed with life in general. He was plan was to go home and take a large dose of insulin because he was a type 2 diabetic. Denies any HI . States he has been on mental health hold many times prior to today Day of Onset: Feb 28, 2025 Medication Reconciliation Allergies: Coded Allergies: Penicillins (Verified Allergy, Severe, 09/26/24) Scheduled Aripiprazole (Abilify Maintena), 1 SYR IM Q28D, (Reported) Empagliflozin (Jardiance), 1 TAB PO QAM, (Reported) Escitalopram Oxalate (Escitalopram Oxalate), 1 TAB PO DAILY, (Reported) Gabapentin (Gabapentin), 1 TAB PO TID, (Reported) Insulin Regular, Human (Humulin R U-500 Kwikpen), 80 UNITS SQ QAM, (Reported) Insulin Regular, Human (Humulin R U-500 Kwikpen), 20 UNITS SQ 1400, (Reported) Meloxicam (Meloxicam), 1 TAB PO DAILY, (Reported) Omeprazole (Prilosec), 1 CAP PO DAILY, (Reported) Trazodone Hcl (Trazodone Hcl), 300 MG PO HS, (Reported) Discontinued Medications Empagliflozin (Jardiance), 1 TAB PO DAILY, (Reported) Discontinued Reason: Other Lactobacillus Rhamnosus (Culturelle), 1 CAP PO DAILY Discontinued Reason: Other Linezolid (Linezolid), 1 TAB PO Q12H Discontinued Reason: Other Metformin HCl (Metformin HCl), 1 TAB PO BID, (Reported) Discontinued Reason: Other Oxycodone Hcl IR* (Oxycodone IR*), 5 MG PO Q4H PRN for severe pain (7-10) Discontinued Reason: Other Potassium Chloride (Klor-Con M20), 20 MEQ PO DAILY Discontinued Reason: Other Past Medical History Past Medical History: High Cholesterol, Hypertension, Vascular Disease, Sleep Apnea, Diabetes, Chronic Pain, Anxiety, Depression, Schizophrenia Past Surgical History: no surgical history Patient History: (Cancer) Malignant carcinoid tumor MOTHER FH: diabetes mellitus MOTHER Maternal grandmother FHx: depression FHx: schizophrenia Alcohol Use: None Drug Use: none Lives with: Family Lives In: Home Occupation: unemployed Review of Systems All Other Systems at this time: Reviewed and Negative ROS As stated above in the HPI, otherwise all systems are reviewed and negative. Physical Exam Vital Signs: Temperature: 98.1, Heart Rate: 107, Respiratory Rate: 16, BP: 135/95, Pulse Oximetry: 97, Weight: 142.850 Oxygen Flow Rate: 0 Physical Exam General: Alert, no apparent distress. Respiratory: Lungs clear, no respiratory distress. Neurologic: Oriented x4. Psychiatric: Normal mood and affect. Skin: red color, warm and dry. No edema, no ecchymosis. Progress Results/Orders Results/Orders Orders - HEIKE GARCIA NP Urinalysis (02/28/25 21:29) Med Rec (02/28/25 21:29) 1799.11 (02/28/25 21:29) Close Observation Level (02/28/25 21:29) Regular Diet (03/01/25 Breakfast) Vital Signs 02/28/25 02/28/25 20:22 20:58 Temp 98.1 Pulse 107 Resp 16 B/P (MAP) 135/95 Pulse Ox 97 O2 Flow Rate 0 Laboratory Tests Test 02/28/25 20:41 02/28/25 20:52 02/28/25 21:03 White Blood Count 9.0 Red Blood Count 5.42 Hemoglobin 15.5 Hematocrit 45.3 Mean Corpuscular Volume 83.6 Mean Corpuscular Hemoglobin 28.6 Mean Corpuscular Hemoglobin Concent 34.2 Red Cell Distribution Width 13.6 Platelet Count 217 Mean Platelet Volume 9.2 Neutrophils (%) (Auto) 63.5 Lymphocytes (%) (Auto) 27.7 Monocytes (%) (Auto) 6.8 Eosinophils (%) (Auto) 1.6 Basophils (%) (Auto) 0.4 Neutrophils # (Auto) 5.7 Lymphocytes # (Auto) 2.5 Monocytes # (Auto) 0.6 Eosinophils # (Auto) 0.1 Basophils # (Auto) 0.0 CBC Comment Sodium Level 136 Potassium Level 4.0 Chloride Level 98 L Carbon Dioxide Level 22.5 L Anion Gap 16 Blood Urea Nitrogen 10 Creatinine 0.83 Estimated GFR/1.73 m2 > 90 BUN/Creatinine Ratio 12.0 Glucose Level 259 H Calcium Level 9.3 Total Bilirubin 1.6 H Aspartate Amino Transf (AST/SGOT) 44 H Alanine Aminotransferase (ALT/SGPT) 55 Alkaline Phosphatase 87 Total Protein 8.0 Albumin 4.4 Globulin 3.6 Albumin/Globulin Ratio 1.2 Thyroid Stimulating Hormone (TSH) 1.42 Chemistry Comments Ethyl Alcohol Level < 10 SARS-CoV-2 Antigen (Rapid) Negative Urine Opiates Screen Negative Urine Methadone Screen Negative Urine Fentanyl Screen Negative Urine Barbiturates Screen Negative Urine Phencyclidine Screen Negative Urine Amphetamines Screen Negative Urine Benzodiazepines Screen Negative Urine Cocaine Screen Negative Urine Cannabinoids Screen Negative Drug Screen Comment Medical Decision Making Findings This patient does not present agitated or unwilling to seek help. However , is very familiar with the mental health protocol.. He will likely benefit from [facility] evaluation for potential resource management and likely discharge tomorrow. Differential Dx:Considerations: Include: Alcohol abuse, Anxiety, Bipolar disorder, Conversion disorder, Depression, Encephaloathy, Homicidal, Panic disorder, Personality disorder, Schizophrenia, Substance abuse, Suicidal, Other Departure Disposition: 01 HOME / SELF CARE / HOMELESS Impression: Primary Impression: Suicidal ideation Condition: Stable Additional Instructions: Transfer orders for [facility]: At this time there is no evidence of an emergent medical condition that would preclude (admission/transfer) to a psychiatric unit via [facility] protocol for further psychiatric, as well as medical evaluation and treatment. At this time I have no reason to believe that transfer via [facility] protocol would have serious medical compromise in the patient's health. Referrals: NO PRIMARY CARE PROVIDER (PCP) Signature Scribe Signature: g Attestation: The note accurately reflects work and decisions made by me.Heike Genao NP 02/28/25 21:41 HEIKE GARCIA NP Feb 28, 2025 21:25
[2025-02-28 21:54] LABS: URINE AMPHETAMINE SCREEN NEGATIVE (Neg); URINE BARBITUATE SCREEN NEGATIVE (Neg); URINE BENZODIAZEPINES SCREEN NEGATIVE (Neg); URINE CANNABINOID SCREEN NEGATIVE (Neg); URINE COCAINE SCREEN NEGATIVE (Neg); URINE METHADONE SCREEN NEGATIVE (Neg); URINE OPIATE SCREEN NEGATIVE (Neg); URINE PHENCYCLIDINE SCREEN NEGATIVE (Neg)
[2025-02-28 22:15] LABS: BILIRUBIN,URINE NEGATIVE (Neg); CLARITY,URINE CLEAR (Clear); COLOR,URINE YELLOW (Yellow); GLUCOSE, URINE >=1000 mg/dl (Neg); KETONES,URINE >=80 mg/dl (Neg); LEUKOCYTE ESTERASE ,URINE NEGATIVE (Neg); NITRITES, URINE NEGATIVE (Neg); OCCULT BLOOD,URINE NEGATIVE (Neg); PROTEIN,URINE NEGATIVE (Neg); UROBILINOGEN,URINE 0.2 E.U/dL (0.2-1.0)
[2025-02-28 22:52] LABS: UA COLLECTION TYPE CLN CATCH MIDSTREAM
[2025-02-28 23:01] LABS: BACTERIA,URINE NONE SEEN /HPF (Neg); SQUAMOUS EPITHELIAL CELL,UR FEW /LPF (FEW)
[2025-02-28 23:02] LABS: RBC,URINE NONE SEEN /HPF (0-2); WBC,URINE 0-4 /HPF (0-4)
[2025-03-01] MEDS: insulin regular, human U-100 10ml vial - multi-dose SQ SCH ×2 (09:26→15:39)
[2025-03-01 14:15] VITALS: BP 152/88; PULSE 92; RESP 16; TEMP 98; O2SAT 96
[2025-03-01] MEDS ORDERED: mag hydrox/Alum hydrox/simeth 30ml oral suspension PO PRN (14:40)
[2025-03-01] MEDS ORDERED: magnesium hydroxide 30ml (MOM) UD suspension PO PRN (14:40)
[2025-03-01] MEDS ORDERED: loperamide 2mg capsule PO PRN (14:40)
[2025-03-01] MEDS: gabapentin 300mg capsule PO SCH (15:32)
[2025-03-01] MEDS: ESCITALOPRAM 10 mg tablet 10 MG TABLET PO SCH (15:32)
[2025-03-01] MEDS: pantoprazole 40mg Tablet.DR PO SCH (15:33)
[2025-03-01] MEDS: MELOXICAM 7.5 MG TABLET PO SCH (15:33)
[2025-03-01] MEDS: EMPAGLIFLOZIN 25 MG TABLET PO SCH (15:34)
[2025-03-01] MEDS: acetaminophen 325mg tablet PO PRN (16:38)
[2025-03-01 18:52] VITALS: RESP 16; O2SAT 96
[2025-03-01] MEDS: traZODone 150mg tablet PO SCH (20:03)
[2025-03-01] MEDS ORDERED: diphenhydrAMINE 25mg capsule PO PRN (20:10)
[2025-03-01] MEDS ORDERED: chlorproMAZINE 25mg tablet PO PRN (20:10)
[2025-03-01 20:19] VITALS: BP 135/73; PULSE 98; RESP 16; TEMP 98; O2SAT 97
[2025-03-01 22:31] VITALS: PULSE 89; RESP 18; O2SAT 95
[2025-03-02 03:04] VITALS: PULSE 79; RESP 16; O2SAT 97
[2025-03-02 07:00] VITALS: RESP 18; O2SAT 96
[2025-03-02] MEDS ORDERED: pantoprazole 40mg Tablet.DR PO SCH (07:30)
[2025-03-02 08:00] VITALS: BP 147/93; PULSE 108; RESP 18; TEMP 98.1; O2SAT 96
[2025-03-02] MEDS ORDERED: MELOXICAM 7.5 MG TABLET PO SCH (08:00)
[2025-03-02] MEDS ORDERED: aripiprazole 400mg suspension ER syringe IM SCH (08:00)
[2025-03-02] MEDS ORDERED: EMPAGLIFLOZIN 25 MG TABLET PO SCH (08:00)
[2025-03-02] MEDS ORDERED: ESCITALOPRAM 10 mg tablet 10 MG TABLET PO SCH (08:00)
--- NOTE | 2025-03-02 09:23 | HISTORY AND PHYSICAL ---
History & Physical Providers to CC ~ History of Present Illness Reason for Admit\Complaint: Suicidal ideation History of Present Illness History of present illness patient is a pleasant 54-year-old gentleman with a longstanding history of diabetes hypertension hyperlipidemia with a chronic open wounds over his right lower extremity. Patient says he was in his usual state of health his brother was in skilled nursing who he could not visit and then finally he was able to be allow him out he brought him to the emergency room but in the emergency room he himself started having suicidal thoughts and ideation and wanted to end it all. He could not handle it. He says he has depression for a long period of time and unable to tell me if he has had suicidal thoughts in the past or not. He says he knows he needs help. Allergies: Coded Allergies: Penicillins (Verified Allergy, Severe, 09/26/24) Home Medications Home Medications Active Reported Meloxicam 15 Mg Tablet 1 Tab PO DAILY Jardiance (Empagliflozin) 25 Mg Tablet 1 Tab PO QAM Trazodone Hcl 150 Mg Tablet 300 Mg PO HS Escitalopram Oxalate 20 Mg Tablet 1 Tab PO DAILY Prilosec (Omeprazole) 40 Mg Capsule 1 Cap PO DAILY Abilify Maintena (Aripiprazole) 400 Mg Suser.syr 1 Syr IM Q28D Gabapentin 600 Mg Tablet 1 Tab PO TID Humulin R U-500 Kwikpen (Insulin Regular, Human) 500/Ml (3) Insuln.pen 20 Units SQ 1400 Humulin R U-500 Kwikpen (Insulin Regular, Human) 500/Ml (3) Insuln.pen 80 Units SQ QAM Past Medical History Past Medical History Past medical history significant for depression diabetes Past surgical history cholecystectomy left knee x3 arthroscopic surgery right hand Social history denies any tobacco or IV drug abuse uses marijuana and drinks once a week approximately Is single lives with his family mother and brothers Family history nothing of significance that he knows of Allergies are to penicillins but he is not sure what the reaction Review of systems negative for all 10 systems reviewed Family History Family History: (Cancer) Malignant carcinoid tumor MOTHER FH: diabetes mellitus Maternal grandmother FHx: depression MOTHER Maternal grandmother FHx: schizophrenia MOTHER Exam Vitals: Vital Signs Date Time Temp Pulse Resp B/P (MAP) Pulse Ox O2 Delivery O2 Flow Rate FiO2 03/02/25 03:04 79 16 97 21 19 03/01/25 20:19 98.0 135/73 (93) Room Air 03/01/25 18:52 0.0 General: HEENT: Conjunctiva pink, Sclera clear, Mucus Membranes moist. Neck: Supple without masses and tenderness. Resp: Lungs clear to auscultation bilaterally. Heart: Regular Rate and rhythm, normal S1 and S2 without murmur, rub or gallop. Abdomen: Soft and non tender Extremities: No cyanosis,clubbing or edema. Right lower extremity is wrapped up which I did not unwrap. Neurological exam there is no focal deficits. Patient has a significant limp when he walks putting more weight on his left lower extremity than his right. He states this is secondary to the pain in his right lower extremity from the open wound Diagnostic Data Last Recorded Lab Results: 02/28/25204002/28/252040 Additional Plan Assessment and plan -suicidal ideation-per psychiatrist -diabetes-type 2 Probably out of control as patient says he has been noncompliant for the last few weeks at least We will check hemoglobin A1c Accu-Cheks q.a.c. q.h.s. Do low dose insulin protocol Carb consistent diet Resume home meds Check lipid panel Start statins Start VICTORIA inhibitor -morbid obesity patient would benefit from weight loss -hypertension systolics running in 130s to 140s Hopefully the VICTORIA inhibitor that I started him on we will help otherwise we will need to add other meds -diabetic neuropathy continue gabapentin -right lower extremity open wound get a wound consult Medicine team will continue follow the patient per protocol Date of Service: Mar 02, 2025 Billing Provider: KENTON GIBBS MD Common Visit Codes: [id number] INP/OBS CARE (HIGH) KENTON GIBBS MD Mar 02, 2025 09:23
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
[2025-03-02] MEDS: LORazepam 1 MG tablet PO ONE (14:51)
[2025-03-02] MEDS: aripiprazole 400mg suspension ER syringe IM ONE (16:14)
[2025-03-02 19:00] VITALS: RESP 18; O2SAT 95
[2025-03-02 20:00] VITALS: BP 137/78; PULSE 85; RESP 18; TEMP 98.2; O2SAT 95
[2025-03-02 21:56] VITALS: PULSE 110; RESP 20; O2SAT 97
[2025-03-03 03:48] VITALS: PULSE 107; RESP 23; O2SAT 96
[2025-03-03 05:23] LABS: CHOL/HDL RATIO 5.7 (0.00-4.99); CHOLESTEROL 137 MG/DL (0-200); HDL CHOLESTEROL 24 MG/DL (35-60); LDL CHOLESTEROL 75 MG/DL (50-100); TRIGLYCERIDES 260 MG/DL (20-135)
[2025-03-03 05:46] LABS: HEMOGLOBIN A1C 10.5 % (4.5-6.2)
[2025-03-03 07:00] VITALS: RESP 16; O2SAT 98
[2025-03-03 08:00] VITALS: BP 136/82; PULSE 111; RESP 16; TEMP 98.1; O2SAT 98
[2025-03-03] MEDS: atorvastatin 20mg tablet PO SCH (08:58)
[2025-03-03] MEDS: lisinopril 10 MG tablet PO SCH (08:59)
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
[2025-03-03 19:00] VITALS: RESP 16; O2SAT 98
[2025-03-03 20:00] VITALS: PULSE 78; RESP 16; TEMP 97.8; O2SAT 98
[2025-03-03] MEDS: hydrOXYzine 25 MG tablet PO PRN (20:19)
[2025-03-04 07:33] VITALS: BP 118/85; PULSE 101; RESP 18; TEMP 97.7; O2SAT 97
[2025-03-04 08:00] VITALS: RESP 18; O2SAT 95
[2025-03-04 08:26] VITALS: PULSE 96; RESP 20; O2SAT 96
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
[2025-03-04 19:00] VITALS: RESP 19; O2SAT 96
--- NOTE | 2025-03-04 19:30 | PROGRESS NOTE- Residence ---
Progress Note - Resident Providers to CC Resident Creating Document: SAURABH ZAYAS RES ~ Antibiotic Timeout Antibiotic Ordered?: No Subjective Patient was seen and examined bedside, complained of lower extremity numbness secondary to diabetes. Objective Vital Signs Date Time Temp Pulse Resp B/P (MAP) Pulse Ox O2 Delivery O2 Flow Rate FiO2 03/04/25 08:26 96 20 96 Room Air* 0 21 03/04/25 07:33 97.7 118/85 (96) Result Diagram: 02/28/25204002/28/252040 Awake , alert, and oriented x4, resting comfortably in the bed, in no acute distress HEENT: Atraumatic, normocephalic, EOMI, anicteric sclera ; pink conjunctiva Neck: Trachea midline. Supple, full range of motion, no JVD Cardiac: Regular rhythm, regular rate with no murmurs all over the precordium. Respiratory: Equal breath sounds bilaterally, no tachypnea, no wheezing ,rub or rales, Chest wall is symmetric and without deformity. Gastrointestinal: Abdomen symmetric, non-distended, soft, non-tender, normal bowel sounds x4 quadrant, normoactive, no hepatosplenomegaly Musculoskeletal: Decrease in sensation on the foot open wound present Neurological: Speech is clear, alert, and oriented x 4. No motor or sensory deficit, deep tendon reflexes normal, cerebellar intact. Cranial nerves II-XII intact. Skin: Warm and dry Advance Care Planning Advanced Care plannin - 30 Minutes Assessment Assessment 54-year-old gentleman with a longstanding history of diabetes hypertension hyperlipidemia with a chronic open wounds over his right lower extremity. Patient says he was in his usual state of health his brother was in [place] [facility] who he could not visit and then finally he was able to be allow him out he brought him to the emergency room but in the emergency room he himself started having suicidal thoughts and ideation and wanted to end it all. He could not handle it. He says he has depression for a long period of time and unable to tell me if he has had suicidal thoughts in the past or not. He says he knows he needs help. Plan Plan suicidal ideation-per psychiatrist Type 2 diabetes mellitus A1c: 10.5 Accu-Cheks q.a.c. q.h.s. Blood sugars well-maintained with low-dose sliding scale insulin protocol, continue Continue carb controlled diet Lipid panel:, triglycerides 260, initiated atorvastatin 20 mg daily, monitor for side effects like muscle aches Initiated lisinopril 10 mg daily -morbid obesity patient would benefit from weight loss -hypertension Initiated lisinopril 10 mg daily -diabetic neuropathy continue gabapentin -right lower extremity: Wound care consulted Medicine team will continue follow the patient per protocol Date of Service: Mar 04, 2025 Billing Provider: KAYLA GENTILE MD, GAURAV, RES Mar 04, 2025 19:30
[2025-03-04 20:00] VITALS: BP 119/72; PULSE 90; RESP 19; TEMP 98.4; O2SAT 96
[2025-03-04 23:40] VITALS: PULSE 81; RESP 20; O2SAT 97
[2025-03-05 07:11] VITALS: BP 141/77; PULSE 87; RESP 22; TEMP 97; O2SAT 98
[2025-03-05 08:00] VITALS: RESP 22; O2SAT 98
[2025-03-05] MEDS ORDERED: atorvastatin 20mg tablet PO SCH (08:00)
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
[2025-03-05 19:00] VITALS: RESP 18; O2SAT 97
[2025-03-05 20:00] VITALS: BP 132/77; PULSE 93; RESP 18; TEMP 98.3; O2SAT 97
[2025-03-05 22:31] VITALS: PULSE 89; RESP 20; O2SAT 98
[2025-03-06 07:00] VITALS: BP 133/84; PULSE 86; RESP 18; TEMP 96.2; O2SAT 98
[2025-03-06 08:00] VITALS: RESP 18; O2SAT 98
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
[2025-03-06] MEDS: acetaminophen 325mg tablet PO PRN (11:15)
--- NOTE | 2025-03-06 18:19 | PROGRESS NOTE- Residence ---
Progress Note - Resident Providers to CC Resident Creating Document: GURU MAZA RES ~ Antibiotic Timeout Antibiotic Ordered?: No Subjective Patient was seen and examined bedside, complained of lower extremity numbness. He reported he is on gabapentin and is diabetic. Objective Vital Signs Date Time Temp Pulse Resp B/P (MAP) Pulse Ox O2 Delivery O2 Flow Rate FiO2 03/06/25 08:09 86 03/06/25 08:00 18 98 Room Air 03/06/25 07:00 96.2 133/84 (100) 03/05/25 22:31 21 03/04/25 08:26 0 Awake , alert, and oriented x4, resting comfortably in the bed, in no acute distress HEENT: Atraumatic, normocephalic, EOMI, anicteric sclera ; pink conjunctiva Neck: Trachea midline. Supple, full range of motion, no JVD Cardiac: Regular rhythm, regular rate with no murmurs all over the precordium. Respiratory: Equal breath sounds bilaterally, no tachypnea, no wheezing ,rub or rales, Chest wall is symmetric and without deformity. Gastrointestinal: Abdomen symmetric, non-distended, soft, non-tender, normal bowel sounds x4 quadrant, normoactive, Musculoskeletal: Decrease in sensation on the foot open wound present Neurological: Speech is clear, alert, and oriented x 4. No motor or sensory deficit, deep tendon reflexes normal, cerebellar intact. Cranial nerves II-XII intact. Skin: Warm and dry Assessment Assessment 54-year-old gentleman with a longstanding history of diabetes hypertension hyperlipidemia with a chronic open wounds over his right lower extremity. Patient says he was in his usual state of health his brother was in [facility] who he could not visit and then finally he was able to be allow him out he brought him to the emergency room but in the emergency room he himself started having suicidal thoughts and ideation and wanted to end it all. He could not handle it. He says he has depression for a long period of time and unable to tell me if he has had suicidal thoughts in the past or not. He says he knows he needs help. Plan Plan suicidal ideation-per psychiatrist Type 2 diabetes mellitus A1c: 10.5 Accu-Cheks q.a.c. q.h.s. Blood sugars well-maintained with low-dose sliding scale insulin protocol, continue Continue carb controlled diet Lipid panel:, triglycerides 260, initiated atorvastatin 20 mg daily, monitor for side effects like muscle aches continue lisinopril 10 mg daily Continue Jardiance 25 mg daily -morbid obesity patient would benefit from weight loss -hypertension lisinopril 10 mg daily -diabetic neuropathy continue gabapentin -right lower extremity: Wound care consulted Medicine team will continue follow the patient per protocol Date of Service: Mar 06, 2025 Billing Provider: JENNIFFER TEIXEIRA MD Common Visit Codes: [id number] INP/OBS CARE(MOD) GURU MAZA, RES Mar 06, 2025 18:19 JENNIFFER TEIXEIRA MD Mar 06, 2025 19:26
[2025-03-06 19:00] VITALS: RESP 20; O2SAT 97
[2025-03-06 19:50] VITALS: BP 114/78; PULSE 96; RESP 20; TEMP 98.4; O2SAT 97
[2025-03-07 00:14] VITALS: PULSE 92; RESP 20; O2SAT 96
[2025-03-07 07:00] VITALS: BP 131/93; PULSE 96; RESP 16; TEMP 97.8; O2SAT 97
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
[2025-03-07 19:00] VITALS: RESP 18; O2SAT 97
[2025-03-07 20:00] VITALS: BP 148/95; PULSE 93; RESP 18; TEMP 97.8; O2SAT 97
[2025-03-07 22:21] VITALS: PULSE 88; RESP 18; O2SAT 98
[2025-03-08 00:04] VITALS: RESP 20
[2025-03-08 03:54] VITALS: RESP 18
[2025-03-08 08:00] VITALS: BP 143/101; PULSE 82; RESP 16; TEMP 97.6; O2SAT 98
--- NOTE | 2025-03-08 12:11 | PROGRESS NOTE ---
Daily Progress Note Providers to CC No new complaint, resting comfortably in the bed ~ Central Line/PICC still needed: No Olson-Non Protocol Olson Indications Met/Not Met: F/C Indications Not Met Antibiotic Timeout Antibiotic Ordered?: No MRSA Education MRSA Education Provided to pt: No Subjective As above Objective Vital Signs Date Time Temp Pulse Resp B/P (MAP) Pulse Ox O2 Delivery O2 Flow Rate FiO2 03/08/25 08:00 97.6 82 16 143/101 (115) 98 Room Air 03/08/25 03:54 21 03/04/25 08:26 0 Vital signs, stable ,afebrile. Pulse Oximetry reflects adequate oxygenation. General: well developed, well nourished. Awake , alert, and oriented x4, resting comfortably in the bed, in no acute distress . Skin: Warm, dry, no pallor, no rash or petechiae. HEENT: Atraumatic, normocephalic, EOMI, anicteric sclera B; pink conjunctiva; PERRLA, normal oropharynx, moist oral and nasal mucosa. Tympanic membrane , nose , throat clear. Neck: Trachea midline. Supple, full range of motion, no JVD, bruit , hepatojugular reflex , lymphadenopathy or masses, or other lesions Cardiac: Regular rhythm, regular rate no murmurs, rubs, or gallops. Normal S1 and S2, no S3 noticed. PMI is normal. Respiratory: Equal breath sounds bilaterally, no tachypnea; lungs clear to auscultation bilaterally, no wheezing ,rub or rales, or crackles. Chest wall is symmetric and without deformity. No signs of trauma. Chest wall is nontender. No signs of respiratory distress. Resonance is normal upon percussion bilaterally. Gastrointestinal: Abdomen symmetric, non-distended, soft, non-tender, normal bowel sounds x4 quadrant, normoactive, no hepatosplenomegaly , no masses , no bruit, no flank pain bilaterally. No voluntary guarding, rebound, or rigidity. No tenderness to percussion. No pulsatile masses. Equal femoral pulses. No Fitzpatrick's sign or McBurney point tenderness. Back; no CVA tenderness bilaterally, no deformities. Neck and back are without deformity as well. No tenderness noted on palpation of the spinous processes. Spinous processes are midline. Cervical, thoracic, and lumbar paraspinal muscles are not tender and are without spasm. : normal external genitalia, without lesions, swelling, masses or tenderness. Musculoskeletal: Extremities, normal range of motion, non-tender, muscle strength 5/5 x 4. Negative Homans signs bilaterally on lower extremity. Distal pulses full symmetrical, no clubbing, cyanosis , edema. Neurological: Speech is clear, alert, and oriented x 4. No motor or sensory deficit, deep tendon reflexes normal, cerebellar intact. Cranial nerves II-XII intact. Psych: Alert and or appropriate, normal affect. Vascular: Good distal pulses, which are equal x4; capillary refill less than 2 seconds. Lymphatic, no lymphadenopathy. Problem\Assessment\Plan Assessment 54-year-old gentleman with a longstanding history of diabetes hypertension hyperlipidemia with a chronic open wounds over his right lower extremity. Patient says he was in his usual state of health his brother was in longterm who he could not visit and then finally he was able to be allow him out he brought him to the emergency room but in the emergency room he himself started having suicidal thoughts and ideation and wanted to end it all. He could not handle it. He says he has depression for a long period of time and unable to tell me if he has had suicidal thoughts in the past or not. He says he knows he needs help. Plan Plan suicidal ideation-per psychiatrist Type 2 diabetes mellitus A1c: 10.5 Accu-Cheks q.a.c. q.h.s. Blood sugars well-maintained with low-dose sliding scale insulin protocol, continue Continue carb controlled diet Lipid panel:, triglycerides 260, initiated atorvastatin 20 mg daily, monitor for side effects like muscle aches continue lisinopril 10 mg daily Continue Jardiance 25 mg daily -morbid obesity patient would benefit from weight loss -hypertension lisinopril 10 mg daily -diabetic neuropathy continue gabapentin -right lower extremity: Wound care consulted Medicine team will continue follow the patient per protocol Sepsis Screening Reassessment Date: Mar 08, 2025 Date of Service: Mar 08, 2025 Billing Provider: ERICA LEBLANC MD Common Visit Codes: [id number] INP/OBS CARE(LOW) ERICA LEBLANC MD Mar 08, 2025 12:11
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
[2025-03-08 18:43] VITALS: RESP 16; O2SAT 98
[2025-03-08 19:22] VITALS: BP 143/82; PULSE 98; RESP 20; TEMP 98.1; O2SAT 97
[2025-03-08 20:45] VITALS: PULSE 89; RESP 18; O2SAT 95
[2025-03-09 07:30] VITALS: RESP 22
[2025-03-09 07:39] VITALS: BP 132/81; PULSE 88; RESP 16; TEMP 97.9; O2SAT 97
[2025-03-09 08:53] VITALS: BP_SYST 132; PULSE 88
[2025-03-09] MEDS ORDERED: GABA-1405 PO (13:21)
[2025-03-09] MEDS ORDERED: LISI10TA27 PO (13:21)
[2025-03-09] MEDS ORDERED: ATOR20TA66 PO (13:21)
[2025-03-09] MEDS ORDERED: MELO-102 PO (13:21)
[2025-03-09] MEDS ORDERED: ESCI20TA39 PO (13:21)
[2025-03-09] MEDS ORDERED: EMPA25TA PO (13:21)
[2025-03-09] MEDS ORDERED: TRAZ150T78 PO (13:21)
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
== END 2025-03-09 15:51 | disposition home or self-care (01) | DRG 885 ==
LOC: ER 20:10 → UNDOADMIN 03-01 12:15 → ED HOLD 03-01 12:15 → ADULT MH 03-01 14:13 → ED HOLD 03-01 14:15 → ADULT MH 03-01 14:15
PROVIDERS: ADMIT Psychiatry & Neurology Psychiatry; ATTEND Psychiatry & Neurology Psychiatry
PROC: GZHZZZZ Group Psychotherapy (ICD-10-PCS; principal; 2025-03-02)
PROC: GZ51ZZZ Individual Psychotherapy, Behavioral (ICD-10-PCS; 2025-03-02)
DX: F33.3 Major depressive disorder, recurrent, severe with psychotic symptoms (principal); R45.851 Suicidal ideations; Z68.41 Body mass index [BMI] 40.0-44.9, adult; E66.01 Morbid (severe) obesity due to excess calories; G47.33 Obstructive sleep apnea (adult) (pediatric); Z20.822 Contact with and (suspected) exposure to COVID-19; F60.3 Borderline personality disorder; I10 Essential (primary) hypertension; F41.9 Anxiety disorder, unspecified; E78.00 Pure hypercholesterolemia, unspecified; E11.40 Type 2 diabetes mellitus with diabetic neuropathy, unspecified; S81.801A Unspecified open wound, right lower leg, initial encounter; X58.XXXA Exposure to other specified factors, initial encounter; Z79.4 Long term (current) use of insulin; Z79.899 Other long term (current) drug therapy; Y93.89 Activity, other specified; Y92.89 Other specified places as the place of occurrence of the external cause; Y99.8 Other external cause status; Z91.199 Patient's noncompliance with other medical treatment and regimen due to unspecified reason; Z90.49 Acquired absence of other specified parts of digestive tract; Z88.0 Allergy status to penicillin
CPT/HCPCS: 36415; 80053; 80061; 80305; 80320; 81001; 82948; 83036; 84443; 85025; 87081; 87811; 94660; 94760; 99285; A6223; A6253; A6446; A6449; J1815; Q0177

== ENCOUNTER 2025-03-29 11:00 | Outpatient (CLI) | payer MEDICARE, MEDICAID ==
[~2025-03-29 11:00] MED LIST changes: +ATOR20TA66 PO; -EMPA10TA PO; +EMPA25TA PO; -LACT1CAP26 PO; -LINE600T14 PO; +LISI10TA27 PO; +MELO-102 PO; -METF-438 PO; -OXYC-658 PO; -POTA-197 PO
--- NOTE | 2025-03-29 12:16 | RADIOLOGY REPORT ---
CLINICAL INDICATION: PAIN IN LEFT KNEE TECHNIQUE: 2 radiographic views of the left knee were obtained. Comparison: None FINDINGS/IMPRESSION: Moderate tricompartmental knee joint osteoarthrosis. No acute fracture. No significant knee joint eff usion.
== END 2025-03-29 23:59 | disposition home or self-care (01) ==
LOC: RAD 11:00
PROVIDERS: ATTEND Nurse Practitioner
DX: M17.12 Unilateral primary osteoarthritis, left knee (principal); M25.562 Pain in left knee
CPT/HCPCS: 73560

== ENCOUNTER 2025-10-08 17:23 | Emergency (ER) | payer MEDICARE, MEDICAID ==
[~2025-10-08] VITALS: Ht 182.9 cm; Wt 145.4 kg
[2025-10-08] MEDS ORDERED: IBUP-1984 PO (18:13)
[2025-10-08] MEDS ORDERED: DOXY100C43 PO (18:13)
[2025-10-08] MEDS ORDERED: HYDR-3965 PO (18:13)
--- NOTE | 2025-10-08 18:15 | Physician Documentation ---
History of Present Illness ~ Chief Complaint: Finger pain Stated Complaint: FINGER INFECTION Time Seen by MD: 17:45 Primary Medical Doctor: Dr. Borrego HPI 55-year-old male right-hand dominant with a left index finger paronychia with obvious swelling and fluctuance. Symptoms present for approximately 2-3 days. No joint involvement. No extensor or flexor restricted range of motion. Tetanus within 5 years: Yes Medication Reconciliation Allergies: Coded Allergies: Penicillins (Verified Allergy, Severe, 09/26/24) Scheduled Aripiprazole (Abilify Maintena), 1 SYR IM Q28D, (Reported) Atorvastatin Calcium (Atorvastatin Calcium), 20 MG PO DAILY Doxycycline Monohydrate (Doxycycline Monohydrate), 100 MG PO BID Empagliflozin (Jardiance), 1 TAB PO QAM Escitalopram Oxalate (Escitalopram Oxalate), 1 TAB PO DAILY Gabapentin (Gabapentin), 1 TAB PO TID Ibuprofen* (Motrin*), 1 TAB PO Q8H Insulin Regular, Human (Humulin R U-500 Kwikpen), 80 UNITS SQ QAM, (Reported) Insulin Regular, Human (Humulin R U-500 Kwikpen), 20 UNITS SQ 1400, (Reported) Lisinopril (Lisinopril), 10 MG PO DAILY Meloxicam (Meloxicam), 1 TAB PO DAILY Omeprazole (Prilosec), 1 CAP PO DAILY, (Reported) Trazodone Hcl (Trazodone Hcl), 300 MG PO HS Scheduled PRN Hydrocodone Bit/Acetaminophen 5/325 MG ([place] 5/325 MG), 1-2 TAB PO Q4-6 hours PRN for pain Past Medical History Past Medical History: High Cholesterol, Hypertension, Vascular Disease, Sleep Apnea, Diabetes, Chronic Pain, Anxiety, Depression, Schizophrenia Past Surgical History: no surgical history Patient History: (Cancer) Malignant carcinoid tumor MOTHER FH: diabetes mellitus Maternal grandmother FHx: depression MOTHER Maternal grandmother FHx: schizophrenia MOTHER Alcohol Use: None Drug Use: none Lives with: Family Lives In: Home Occupation: unemployed Review of Systems All Other Systems at this time: Reviewed and Negative ROS See HPI Physical Exam Vital Signs: RN Vital Signs have been reviewed: Yes, Temperature: 97.7, Heart Rate: 79, Respiratory Rate: 16, BP: 142/86, Pulse Oximetry: 98, Weight: 145.450 General Appearance: alert, WD/WN, mild distress EENT: PERRL/EOMI Respiratory: lungs clear Cardiovascular: normal peripheral pulses Gastrointestinal: non-tender Digit: infection, soft tissue tenderness, swelling, other (Left index finger paronychia); No: bone tenderness, limited ROM Digit Strength: normal Nail: paronychia Distal Function: normal pulse Procedures I&D Procedure : Site: Left index finger Anesthesia: none Blade Size: 11 Prep/Supplies: betadine prep Incision: pus drained Tolerated Procedure Well?: yes, no complications Procedure Note Two stab incisions with a paronychia with copious amounts of purulent discharge. Progress Results/Orders Results/Orders Completed Orders - CHAD MEJÍA Hydrocodone/Apap 5/325mg Tab ([place] (10/08/25 18:15) Ibuprofen Tablet (Motrin Tablet) (10/08/25 18:15) Vital Signs 10/08/25 10/08/25 10/08/25 17:37 18:26 18:31 Temp 97.7 97.7 Pulse 79 79 Resp 16 4 16 B/P (MAP) 142/86 142/86 Pulse Ox 98 98 Medical Decision Making Additional information obtaine: N/A Findings Examination and history consistent with a paronychia requiring incision and drainage. Risks alternatives and benefits of the procedure who your explained to the patient who gives verbal consent. Please see procedure note. Tolerated procedure well. Recommendations are for warm Epsom salt soaks and to begin antibiotic as directed. Close follow up in 48-72 hours as needed. Safely discharged from emergency department. General Diff Dx:Considerations: Include: Abrasion, Contusion, Fracture, Hematoma, Open fracture Shoulder Diff Dx:Consideration: Include: Other Elbow Diff Dx:Considerations: Include: Other (Noncontributory noncontributory) Wrist Diff Dx:Considerations: Include: Other (Noncontributory) Hand Diff Dx:Considerations: Include: Other (Noncontributory) Finger Diff Dx:Considerations: Include: Cellulitis, Contusion, Dislocation, Subungual hematoma, Other (Paronychia, felon) Departure Disposition: HOME / SELF CARE / HOMELESS Impression: Primary Impression: Paronychia of finger Qualified Codes: L03.012 - Cellulitis of left finger Condition: Improved Discharge Instructions: Paronychia Additional Instructions: Today in the Emergency department you had incision and drainage of the left index finger. Please do warm Epsom salt soaks and begin medications as directed. Return to the emergency department 4072 hours if symptoms have not resolved. Thank you for visiting [facility]. Referrals: NO PRIMARY CARE PROVIDER (PCP) Prescriptions Hydrocodone Bit/Acetaminophen 5/325 MG ([place] 5/325 MG) 5 Mg/325 Mg Tablet 1-2 TAB PO Q4-6 hours PRN for pain, #12 TAB Prov: CHAD MEJÍA 10/08/25 Ibuprofen* (Motrin*) 400 Mg Tablet 1 TAB PO Q8H for pain or fever for 10 Days, #30 TAB Prov: CHAD MEJÍA 10/08/25 Doxycycline Monohydrate (Doxycycline Monohydrate) 100 Mg Capsule 100 MG PO BID, #20 CAP may sub doxycycline hyclate or azithromycin z-pack as prescribed Prov: CHAD MEJÍA 10/08/25 Education Educated: Patient Educated regarding: diagnosis, treatment, prognosis, need for follow up Signature Scribe Signature: . Attestation: . CHAD MEJÍA Oct 08, 2025 18:15 CATHERINE ANDREA MD Oct 09, 2025 07:19
[2025-10-08] MEDS: ibuprofen tablet 400 MG TABLET PO ONE (18:26)
[2025-10-08] MEDS: HYDROcodone/acetaminophen 5mg/325mg tablet PO ONE (18:26)
[2025-10-08 18:31] VITALS: BP 142/86; PULSE 79; RESP 16; TEMP 97.7; O2SAT 98
== END 2025-10-08 18:34 | disposition home or self-care (01) ==
LOC: ER 17:24
DX: L03.012 Cellulitis of left finger (principal); I10 Essential (primary) hypertension; G89.29 Other chronic pain; F41.9 Anxiety disorder, unspecified; F32.A Depression, unspecified; E11.9 Type 2 diabetes mellitus without complications; G47.30 Sleep apnea, unspecified; F20.9 Schizophrenia, unspecified; E78.00 Pure hypercholesterolemia, unspecified; Z88.0 Allergy status to penicillin; Z79.899 Other long term (current) drug therapy; Z79.4 Long term (current) use of insulin; Z56.0 Unemployment, unspecified
CPT/HCPCS: 26010; 99283; A6402; Z7610; A6449